=== PATIENT | female | born 1990 | race Caucasian/White ===

== ENCOUNTER 2021-10-30 11:39 | Outpatient (CLI) | payer OTHER, SELFPAY ==
[2021-10-30 15:16] LABS: Absolute Lymphocyte Count 2.29 X10^3/uL (0.83-4.51); Absolute Neutrophil Count 5.6 X10^3/uL (2.0-7.7); Basophil# 0.05 X10^3/uL; Basophil% 0.6 % (0-1); Eosinophil# 0.04 X10^3/uL; Eosinophils% 0.5 % (0-5); Hematocrit 45.3 % (37-47); Hemoglobin 14.7 g/dL (12.0-15.0); Lymphocyte # 2.29 X10^3/ul (0.83-4.51); Lymphocyte % 27.5 % (19-41); Mean Corp Hgb Conc 32.5 g/dL (32-36); Mean Corpuscular Hgb 30.9 pg (27.0-32.0); Mean Corpuscular Volume 95.4 fL (81-99); Mean Platelet Vol. 10.9 fl (6.2-12.0); Monocyte# 0.39 X10^3/uL; Monocyte% 4.7 % (0-10); NRBC Flagged by Analyzer 0 % (0-5); Neutrophil # 5.55 X10^3/uL (2.7-7.7); Neutrophil % 66.5 % (47-70); Platelet Count 262 K/mm3 (150-450); RBC Distribution Width CV 11.9 % (11.6-14.6); RBC Distribution Width SD 41.5 fl (35.1-43.9); Red Blood Count 4.75 M/mm3 (4.2-5.4); White Blood Count 8.3 K/mm3 (4.4-11.0)
[2021-10-30 15:46] LABS: ALB/GLOB Ratio 1.2 RATIO (0.9-2.4); AST(SGOT) 15 U/L (15-37); Alanine Aminotransfer ALT/SGPT 27 U/L (13-56); Albumin, Serum 3.8 g/dL (3.2-5.0); Alkaline Phosphatase 64 U/L (45-117); Anion Gap 6 (5-15); BUN 8 mg/dL (7-18); BUN/Creat Ratio 10.2 RATIO (10-20); Calcium,Total 8.5 mg/dL (8.5-10.1); Chloride 105 mmol/L (98-107); Creatinine, Serum 0.79 mg/dL (0.55-1.02); EST Glomerular Filtration Rate 91 mL/min (>60); Est Glom Filt Rate - Afr Amer 110 mL/min (>60); Globulin 3.3 g/dL (2.2-4.2); Glucose 84 mg/dL (74-106); Potassium 3.8 mmol/L (3.5-5.1); Protein, Total 7.1 g/dL (6.4-8.2); Sodium Level 139 mmol/L (136-145); T4 Free Direct 0.93 ng/dL (0.76-1.46); Thyroid Stim Hormone (TSH) 2.63 uIU/mL (0.358-3.74)
== END 2021-10-30 23:59 | disposition home or self-care (01) ==
LOC: BIMLAB 11:40
PROVIDERS: PCP Internal Medicine; Referring Provider Internal Medicine; Visit Provider Internal Medicine
DX: K21.9 Gastro-esophageal reflux disease without esophagitis (principal); R00.2 Palpitations
CPT/HCPCS: 36415; 80053; 84439; 84443; 85025

== ENCOUNTER → 2021-12-08 | Outpatient (CLI) | payer OTHER, SELFPAY ==
--- NOTE | 2021-12-08 09:20 | EKG12_ITS ---
Test Reason : PALPITATIONS Blood Pressure : / mmHG Vent. Rate : 072 BPM Atrial Rate : 072 BPM P-R Int : 138 ms QRS Dur : 088 ms QT Int : 362 ms P-R-T Axes : 018 057 040 degrees QTc Int : 396 ms Normal sinus rhythm Normal ECG Confirmed by SAMANTHA RICHARDS, JANEL ([id number]), online editor CALEB LAGOS ([id number]) on 12/08/2021 12:23:01 PM Referred By: Kera Agrawal Confirmed By:JANEL SINGH MD
== END | disposition home or self-care (01) ==
LOC: PSN 09:20
PROVIDERS: PCP Internal Medicine; Referring Provider Internal Medicine; Visit Provider Internal Medicine
DX: R00.2 Palpitations (principal)
CPT/HCPCS: 93005

== ENCOUNTER → 2022-07-23 | Outpatient (CLI) | payer OTHER, SELFPAY | END | disposition home or self-care (01) | LOC: LABSPEC 14:43 | PROVIDERS: PCP Internal Medicine; Visit Provider Physician Assistant | DX: R05.9 Cough, unspecified (principal) | CPT/HCPCS: 87635; U0003; U0005 ==

== ENCOUNTER → 2023-03-01 | Outpatient (CLI) | payer OTHER, SELFPAY ==
[2023-03-07 09:10] LABS: HPV APTIMA, High Risk Negative (Negative)
== END | disposition home or self-care (01) ==
LOC: OPBI 16:36
PROVIDERS: Referring Provider Obstetrics & Gynecology; Visit Provider Obstetrics & Gynecology
DX: Z12.4 Encounter for screening for malignant neoplasm of cervix (principal)
CPT/HCPCS: 87624; 88175; G0145

== ENCOUNTER → 2023-03-07 | Outpatient (CLI) | payer OTHER, SELFPAY ==
--- NOTE | 2023-03-07 14:38 | BI_ITS ---
MAMMOGRAPHY - BILATERAL DIAGNOSTIC REASON FOR EXAM: Female, 32 years old. One-week history of a right breast lump. PERTINENT HISTORY: Grandmother with breast cancer. TECHNIQUE: Digital bilateral breast radha (3D mammographic acquisition) in the CC and MLO projections. 2-D mediolateral oblique (MLO) and craniocaudad (CC) views of both breasts were obtained. CAD: Full Field Digital Mammography with Computer Added Detection was performed. COMPARISON: None. Baseline examination. FINDINGS: Breast Composition: The breasts are heterogeneously dense, which may obscure small masses. There are no dominant masses or suspicious calcifications. No other significant abnormalities are identified. BI/DIAG MAMM W/CAD, BILAT IMPRESSION: Negative diagnostic mammogram. With the patient''s history of a palpable lump in the inferior central portion of the right breast, correlation with ultrasound is recommended. ASSESSMENT CATEGORY: BIRADS Category 0: Incomplete. Need additional imaging evaluation. A letter regarding these results will be sent to the patient by the facility within 30 days. Approximately 10% of breast cancers are not detected by mammography. A normal mammogram should not delay biopsy of a clinically suspicious abnormality. Electronically Signed: Bairon Haque MD at 8:55 EDT ,
--- NOTE | 2023-03-07 14:38 | US_ITS ---
STUDY: ULTRASOUND BREAST - RIGHT REASON FOR EXAM: Female, 32 years old. Right breast lump. TECHNIQUE: Axial and longitudinal images of the RIGHT breast were performed with a high resolution ultrasound transducer. # OF IMAGES: 23 COMPARISON: None. FINDINGS: RIGHT Breast: Targeted examination of the right breast in the area of the clinical concern shows dense fibroglandular tissue and normal pectoralis muscle. No dominant cystic or solid masses. Negative imaging should not been further evaluation of any clinically suspicious findings. US/Breast Limited Unilateral IMPRESSION: No abnormality along the right breast ultrasound. See discussion above. ASSESSMENT CATEGORY: BIRADS Category 1: Negative. A letter regarding these results will be sent to the patient by the facility within 30 days. Electronically Signed: Nathen Castaneda MD at 15:47 EDT ,
== END | disposition home or self-care (01) ==
PROVIDERS: PCP Internal Medicine; Referring Provider Obstetrics & Gynecology; Visit Provider Obstetrics & Gynecology
DX: N63.10 Unspecified lump in the right breast, unspecified quadrant (principal); Z80.3 Family history of malignant neoplasm of breast
CPT/HCPCS: 76642; 77062; 77066; G0279

== ENCOUNTER → 2024-03-06 | Outpatient (CLI) | payer OTHER, SELFPAY ==
[2024-03-06 12:04] LABS: Vitamin D,25 Hydroxy 61.7 ng/mL
[2024-03-06 12:10] LABS: ALB/GLOB Ratio 1.1 RATIO (0.9-2.4); AST(SGOT) 18 U/L (15-37); Alanine Aminotransfer ALT/SGPT 22 U/L (13-56); Albumin, Serum 3.9 g/dL (3.2-5.0); Alkaline Phosphatase 70 U/L (45-117); Anion Gap 7 (5-15); BUN 9 mg/dL (7-18); BUN/Creat Ratio 10.8 RATIO (10-20); Calcium,Total 9.2 mg/dL (8.5-10.1); Chloride 104 mmol/L (98-107); Cholesterol 220 mg/dL (200); Creatinine, Serum 0.83 mg/dL (0.55-1.02); EST Glomerular Filtration Rate 84 mL/min (>60); Est Glom Filt Rate - Afr Amer 101 mL/min (>60); Globulin 3.5 g/dL (2.2-4.2); Glucose 84 mg/dL (74-106); High Density Lipoprotein 83 mg/dL; Potassium 3.5 mmol/L (3.5-5.1); Protein, Total 7.4 g/dL (6.4-8.2); Sodium Level 138 mmol/L (136-145); Thyroid Stim Hormone (TSH) 2.26 uIU/mL (0.358-3.74); Triglycerides 92 mg/dL; Very Low Density Lipoprotein 18 mg/dL (5-40)
== END | disposition home or self-care (01) ==
PROVIDERS: PCP Internal Medicine; Referring Provider Obstetrics & Gynecology; Visit Provider Obstetrics & Gynecology
DX: Z13.29 Encounter for screening for other suspected endocrine disorder (principal); R53.83 Other fatigue; Z13.220 Encounter for screening for lipoid disorders; Z13.1 Encounter for screening for diabetes mellitus; Z13.21 Encounter for screening for nutritional disorder
CPT/HCPCS: 36415; 80053; 80061; 82306; 84443

== ENCOUNTER → 2025-02-08 | Outpatient (CLI) | payer OTHER, SELFPAY ==
[2025-02-08 16:28] LABS: AST(SGOT) 21 U/L (<=31); Alanine Aminotransfer ALT/SGPT 22 U/L (<=34); Albumin, Serum 4.6 g/dL (3.5-5.0); Alkaline Phosphatase 72 U/L (35-104); Anion Gap 11 (5-15); BUN 16 mg/dL (4-19); BUN/Creat Ratio 22.6 RATIO (10-20); Calcium,Total 9.5 mg/dL (7.6-11.0); Carbon Dioxide 26.3 mmol/L (21.0-32.0); Chloride 101 mmol/L (98-108); Free T3 2.8 pg/mL (2.18-3.98); Globulin 2.0 g/dL (2.2-4.2); Glucose 81 mg/dL (70-99); Potassium 3.7 mmol/L (3.3-5.1)
== END | disposition home or self-care (01) ==
LOC: LAB 13:55
PROVIDERS: PCP Nurse Practitioner Family; Referring Provider Nurse Practitioner Family; Visit Provider Nurse Practitioner Family
DX: R00.2 Palpitations (principal)
CPT/HCPCS: 36415; 80053; 84439; 84443; 84481; 86376

== ENCOUNTER → 2025-02-17 | Outpatient (CLI) | payer OTHER, SELFPAY ==
--- OUTSIDE RECORDS SUMMARY | 2025-02-17 11:17 | XMS RPT_ITS | CCD ---
Author Organization [facility] Care Team Providers Care Press Tender Star [employer] Name Role Phone Ivanauskas, Saulius Unavailable Unavailable Ivanauskas, Saulius Unavailable Unavailable No Doctor Assigned, Nodr Unavailable Unavail able Unavailable Primary Care Provider Dr. Kera Thomas Attending Provider [phone] Dr. Kera Agrawal Primary Care Provider Dr. Kera Agrawal Referring Provider [phone] Dr. Angela Gomes Attending Provider Kylah HAND II BLOCKER-CMayi Primary Care Provider Kylah HAND II BLOCKER-CMayi Attending Provider Kylah HAND II BLOCKER-CMayi Referring Provider Olecindye, Efewongbe Primary Care Unavailable Angela Gomes Referring UnavailAngela Gamino Attending UnavailMayi Mendoza Attending Unavailable Mayi Montero Referring Unavailable Kylah Mayi Primary Care Unavailable Kylah Mayi Primary Care Unavailable Mayi Montero Referring Unavailable Mayi Montero Attending Unavailable Alvertoe, Efewongbe Referring Unavailable Oleghe, Efewongbe Primary Care Unavailable Angela Gomes Attending Unavailabl e Jenniferhof, Mayi Primary Care Unavailable Kylah Mayi Referring Unavailable Mayi Montero Attending Unavailable Allergies Allergy Classification Reported Allergen(s) Allergy Type Date of Onset Reaction(s) Facility (1 source) No Known Medication Allergies; Translations: [No Known Medication Allergies] Propensity to adverse reactions to drug (disorder) [facility] Repository Medications Current Medications Medication Drug Class(es) Dates Sig (Normalized) Sig (Original) biotin 1 mg oral capsule (1 source) Start: 03-04-2024 take 1 capsule by mouth once daily Biotin 1 mg capsule Active 1 mg PO DAILY March 04, 2024 12:00am cholecalciferol 0.05 mg oral capsule (1 source) Vitamin D Start: 03-04-2024 take 1 capsule by mouth once daily Cholecalciferol (Vitamin D3) 50 mcg (2,000 unit) capsule Active 50 ug PO DAILY March 04, 2024 12:00am collagen peptides (5 sources) Start: 10-30-2021 collagen peptides Active PO October 30, 2021 10:39am Start: 10-30-2021 End: 03-04-2024 collagen peptides Discontinu ed PO 0 October 30, 2021 12:00am March 04, 2024 8:44am Start: 10-30-2021 collagen pepti arie Active PO October 30, 2021 12:00am ethinyl estradiol 0.02 mg / levonorgestrel 0.1 mg oral tablet (9 sources) Progestin, Estrogen, Progestin-containing Intrauterine Device Start: 03-01-2023 End: 02-13-2024 take 1 tablet by mouth once daily Levonorgestrel-Ethinyl Estrad (Aviane) 0.1-20 mg-mcg tablet Active 1 {tbl} PO DAILY February 13, 2024 2:38pm take active pills only Start: 10-30-2021 take 1 tablet by natacha th once daily Levonorgestrel-Ethinyl Estrad (Aviane) 0.1-20 mg-mcg tablet Active 1 TABLET PO DAILY October 30, 2021 10:39am Start: 10-30-2021 End: 03-04-2024 take 1 tablet by mouth once daily Levonorgestrel-Ethinyl Estrad (Aviane) 0.1-20 mg-mcg tablet Discontinued 1 {tbl} PO DAILY October 30, 2021 12:00am March 04, 2024 8:44am Start: 10-30-2021 take 1 tablet by natacha th once daily Levonorgestrel-Ethinyl Estrad (Aviane) 0.1-20 mg-mcg tablet Active 1 TABLET PO DAILY October 30, 2021 12:00am Lactobacillus Combination No .9 (Adult 50 Plus Probiotic) 4 billion cell capsule (5 sources) Start: 10-30-2021 Lactobacillus Combination No.9 (Adult 50 Plus Probiotic) 4 billion cell capsule Active PO October 30, 2021 10:39am Start: 10-30-2021 Lactobacillus Combination No.9 (Adult 50 Plus Probiotic) 4 billion cell capsule Active PO October 30, 2021 12:00am Magnesium (5 sources) Start: 10-30-2021 take 200 mg by mouth once daily Magnesium Active 200 MG PO DAILY October 30, 2021 10:40am Start: 10-30-2021 End: 03-04-2024 take 1 tablet by mouth once daily Magnesium 200 mg tablet Discontinued 200 mg PO DAILY October 30, 2021 12:00am March 04, 2024 8:44am Start: 10-30-2021 take 200 mg by mouth once gypsy y Magnesium Active 200 MG PO DAILY October 30, 2021 12:00am mecobalamin 1 mg sublingual tablet (1 source) Start: 03-04-2024 Mecobalamin (V itamin B12) 1,000 mcg tablet,disintegrating Active 1000 ug SL DAILY March 04, 2024 12:00am place tablet under tongue and allow to dissolve for at least30 secs before swallowing norethindrone 0.35 mg oral tablet (1 source) Start: 03-04-2024 take 1 tablet by mouth once daily Norethindrone (Contraceptive) 0.35 mg tablet Active 0.35 mg PO DAILY 84 0 March 04, 2024 12:00am [place]-3 Fatty Acids 1,000 mg capsule (1 source) Start: 03-04-2024 take 1 capsule by mouth once daily [place]-3 Fatty Acids 1,000 mg capsule Active 1000 mg PO DAILY March 04, 2024 12:00am powdered greens (5 sources) Start: 10-30-2021 powdered green s Active PO October 30, 2021 10:39am Start: 10-30-2021 End: 03-04-2024 powdered greens Discontinued PO 0 October 30, 2021 12:00am March 04, 2024 8:44am Start: 10-30-2021 powdered green s Active PO October 30, 2021 12:00am Completed/Discontinued Medications Medication Drug Class(es) Dates Sig (Normalized) Sig (Original) acetaminophen 325 mg oral capsule (5 sources) Start: 10-30-2021 End: 03-04-2024 take 1 capsule by mouth once as needed Acetaminophen (Tylenol) 325 mg capsule Discontinued 325 mg PO ONCE as needed October 30, 2021 12:00am March 04, 2024 8:44am CBD oil (10 sources) Start: 10-30-2021 End: 03-04-2024 CBD oil Discontinued PO as needed 0 October 30, 2021 11:06am March 04, 2024 8:44am Start: 10-30-2021 CBD oil Active PO October 30, 2021 11:06am Start: 10-30-2021 End: 10-30-2021 CBD oil Discontinued PO Allen h 2021 10:40am October 30, 2021 11:06am Start: 10-30-2021 End: 10-30-2021 CBD oil Discontinued PO 0 Ma rch 2021 12:00am October 30, 2021 11:06am Start: 10-30-2021 End: 10-30-2021 CBD oil Discontinued PO Allen h 2021 12:00am October 30, 2021 11:06am levOCARNitine 500 mg oral tablet (5 sources) Carnitine Analog Start: 10-30-2021 End: 03-01-2023 take 1 tablet by mouth once at mealtime Levocarnitine (L-Carnitine) 500 mg tablet Discontinued 500 mg PO ONCE October 30, 2021 12:00am March 01, 2023 10:47am must administer with a meal/food omeprazole 40 mg delayed release oral capsule (5 sources) Proton Pump Inhibitor Start: 10-30-2021 End: 03-04-2024 take 1 capsule by mouth once daily Omeprazole 40 mg capsule,delayed release(DR/EC) Discontinued 40 mg PO DAILY 90 2 October 30, 2021 12:00am March 04, 2024 8:44am Problems Active Problems Problem Classification Problem Date Documented Date Episodic/Chronic Anxiety disorders (7 sources) Anxiety; Translations: [Anxiety disorder, unspecified] Chronic Cardiac dysrhythmias (1 source) Cardiac arrhythmia; Translations: [Cardiac arrhythmia, unspecified cardiac arrhythmia type] Chronic Cardiac dysrhythmias (9 sources) Palpitations; Translations: [Palpitations] Onset: 02-12-2025 Episodic Disorders of lipid metabolism (1 source) Elevated fasting lipid profile; Translations: [Hyperlipidemia, unspecified] 03-09-2024 Chronic Disorders of teeth and jaw (2 sources) Loss of teeth due to extraction; Translations: [Partial loss of teeth, unspecified cause, unspecified class] Episodic Esophageal disorders (7 sources) Gastroesophageal reflux disease; Translations: [Gastro-esophageal reflux disease without esophagitis] Chronic Heart valve disorders (5 sources) Heart murmur; Translations: [Cardiac murmur, unspecified] 10-30-2021 Episodic Other endocrine disorders (5 sources) Hypoglycemia; Translations: [Hypoglycemia, unspecified] 10-30-2021 Chronic Other upper respiratory disease (5 sources) Seasonal allergy; Translations: [Other seasonal allergic rhinitis] 10-30-2021 Chronic Past or Other Problems Problem Classification Problem Date Documented Da te Episodic/Chronic Malaise and fatigue (2 sources) Fatigue; Translations: [Other fatigue] Onset: 03-04-2024 03-04-2024 Episodic Other screening for suspected conditions (not mental disorders or infectious disease) (4 sources) Encounter for screening for other suspected endocrine disorder; Translations: [Encounter for screening for lipoid disorders] Onset: 03-04-2024 Episodic Results Test Name Value Interpretation Reference Range Facility Thyroid Peroxidase ABon 07-0 THYR PEROX AB < 9 Normal 0-34 [facility] Comment on above: Result Comment: Perf ormed at: - [facility] [address] [id number] [employer]ather: Lj Doshi PhD, Phone: [phone] Performed By: #### L 500.1821, K159.26341, Z506.5751, Z5468.3974, R443.9663 #### [facility] [address] [place], [address] Anion gap in Serum or Plasma Ordered By: Mayi Montero on 02-08-2025 Anion gap [Moles/Vol] 11 mmol/L 5-15 [facility] BUN/creatinine ratioOrdered By: Mayi Montero on 02-08-2025 Urea nitrogen/Creatinine [Mass ratio] 22.6 mg/mg High 10-20 [facility] Bilirubin, totalOrdered By: Mayi Montero on 02-08-2025 Bilirubin [Mass/Vol] 0.51 mg/dL 0.00-1.30 [facility] Carbon dioxide, total [Moles /volume] in Central venous bloodOrdered By: Mayi Montero on 02-08-2025 CO2 [Moles/Vol] 26.3 mmol/L 21.0-32.0 [facility] Chloride assayOrdered By: Panfilo Montero on 02-08-2025 Chloride [Moles/Vol] 101 mmol/L 98-108 [facility] Comprehensive Metabolic Prof ilon 02-08-2025 Albumin [Mass/Vol] 4.6 g/dL Normal 3.5-5.0 [facility] Comment on above: Performed By: #### L 500.4050, L501.45509, L506.0400, L3300.6900, L501.9520 #### [facility] [address] [place], [address] Albumin/Globulin [Mass ratio] 2.4 {ratio} Normal 0.9-2.4 [facility] Comment on above: Performed By: #### L 500.4050, L501.33930, L506.0400, L3300.6900, L501.9520 #### [facility] [address] [place], [address] ALK PHOS 72 U/L Normal 35-104 [facility] Comment on above: Performed By: #### L 500.4050, L501.08203, L506.0400, L3300.6900, L501.9520 #### [facility] [address] [place], [address] ALT [Catalytic activity/Vol] 22 U/L Normal <=34 [facility] Comment on above: Performed By: #### L 500.4050, L501.42289, L506.0400, L3300.6900, L501.9520 #### [facility] [address] [place], [address] AST [Catalytic activity/Vol] 21 U/L Normal <=31 [facility] Comment on above: Performed By: #### L 500.4050, L501.62522, L506.0400, L3300.6900, L501.9520 #### [facility] [address] [place], [address] Bilirubin [Mass/Vol] 0.51 mg/dL Normal 0.00-1.30 [facility] Comment on above: Performed By: #### L 500.4050, L501.92602, L506.0400, L3300.6900, L501.9520 #### [facility] [address] [place], [address] BUN/CRE 22.6 RATIO High 10-20 [facility] Comment on above: Performed By: #### L 500.4050, L501.42638, L506.0400, L3300.6900, L501.9520 #### [facility] [address] [place], [address] Calcium [Mass/Vol] 9.5 mg/dL Normal 7.6-11.0 [facility] Comment on above: Performed By: #### L 500.4050, L501.10115, L506.0400, L3300.6900, L501.9520 #### [facility] [address] [place], [address] Chloride [Moles/Vol] 101 mmol/L Normal 98-108 [facility] Comment on above: Performed By: #### L 500.4050, L501.77726, L506.0400, L3300.6900, L501.9520 #### [facility] [address] [place], [address] CO2 [Moles/Vol] 26.3 mmol/L Normal 21.0-32.0 [facility] Comment on above: Performed By: #### L 500.4050, L501.55794, L506.0400, L3300.6900, L501.9520 #### [facility] [address] [place], [address] Creatinine [Mass/Vol] 0.71 mg/dL Normal 0.70-1.20 [facility] Comment on above: Performed By: #### L 500.4050, L501.89075, L506.0400, L3300.6900, L501.9520 #### [facility] [address] [place], [address] GAP 11 Normal 5-15 [facility] Comment on above: Performed By: #### L 500.4050, L501.84544, L506.0400, L3300.6900, L501.9520 #### [facility] [address] [place], [address] GFR/1.73 sq M.predicted among non-blacks MDRD (S/P/Bld) [Vol rate/Area] 115 mL/min/{1.73_m2} Normal >60 [facility] Comment on above: Result Comment: mL/m in/1.73m2 CKD-EPI Creatinine Equation (2020) Performed By: #### L 500.4050, L501.82364, L506.0400, L3300.6900, L501.9520 #### [facility] [address] [place], [address] Globulin (S) [Mass/Vol] 2.0 g/dL Low 2.2-4.2 [facility] Comment on above: Performed By: #### L 500.4050, L501.04578, L506.0400, L3300.6900, L501.9520 #### [facility] [address] [place], [address] Glucose [Mass/Vol] 81 mg/dL Normal 70-99 [facility] Comment on above: Performed By: #### L 500.4050, L501.41577, L506.0400, L3300.6900, L501.9520 #### [facility] [address] [place], [address] Potassium [Moles/Vol] 3.7 mmol/L Normal 3.3-5.1 [facility] Comment on above: Performed By: #### L 500.4050, L501.37489, L506.0400, L3300.6900, L501.9520 #### [facility] [address] [place], [address] Sodium [Moles/Vol] 137 mmol/L Normal 133-145 [facility] Comment on above: Performed By: #### L 500.4050, L501.74139, L506.0400, L3300.6900, L501.9520 #### [facility] [address] [place], [address] T PROT 6.6 g/dL Normal 5.9-8.4 [facility] Comment on above: Performed By: #### L 500.4050, L501.56720, L506.0400, L3300.6900, L501.9520 #### [facility] [address] [place], [address] Urea nitrogen [Mass/Vol] 16 mg/dL Normal 4-19 [facility] Comment on above: Performed By: #### L 500.4050, L501.20279, L506.0400, L3300.6900, L501.9520 #### [facility] [address] [place], [address] Free T3on 02-08-2025 Free T3 [Mass/Vol] 2.8 pg/mL Normal 2.18-3.98 [facility] Comment on above: Performed By: #### L 500.4050, L501.74295, L506.0400, L3300.6900, L501.9520 #### [facility] [address] [place], [address] Free P3Lbsuyfo By: Mayi rubin on 02-08-2025 Free T3 [Mass/Vol] 2.8 pg/mL 2.18-3.98 [facility] Glomerular filtration rate ( GFR) estimation/1.73 sq m using serum, plasma, or whole bOrdered By: Mayi Montero on 02-08-2025 GFR/1.73 sq M.predicted among non-blacks MDRD (S/P/Bld) [Vol rate/Area] 115 mL/min/{1.73_m2} >60 [facility] Comment on above: mL/min/1.73m2 CKD-EP I Creatinine Equation (2020) Laboratory - Chemistry and C hemistry - challengeOrdered By: Mayi Montero on 02-08-2025 AST [Catalytic activity/Vol] 21 U/L <32 [facility] Potassium measurement (mass/ volume)Ordered By: Mayi Montero on 02-08-2025 Potassium (Unsp spec) [Mass/Vol] 3.7 mmol/L 3.3-5.1 [facility] Serum creatinine measurement (mass/volume)Ordered By: Mayi Montero on 02-08-2025 Creatinine [Mass/Vol] 0.71 mg/dL 0.70-1.20 [facility] Serum globulin measurementOr dered By: Mayi Montero on 02-08-2025 Globulin (S) [Mass/Vol] 2.0 g/dL Low 2.2-4.2 [facility] Serum glucose measurement (m ass/volume)Ordered By: Mayi Montero on 02-08-2025 Glucose [Mass/Vol] 81 mg/dL 70-99 [facility] Serum or plasma alanine zambrano otransferase (ALT) measurementOrdered By: Mayi Montero on 02-08-2025 ALT [Catalytic activity/Vol] 22 U/L <35 [facility] Serum or plasma albumin noah urement (mass/volume)Ordered By: Mayi Montero on 02-08-2025 Albumin [Mass/Vol] 4.6 g/dL 3.5-5.0 [facility] Serum or plasma albumin/glob ulin mass ratioOrdered By: Mayi Montero on 02-08-2025 Albumin/Globulin [Mass ratio] 2.4 {ratio} 0.9-2.4 [facility] Serum or plasma alkaline lisa sphatase measurementOrdered By: Mayi Montero on 02-08-2025 ALP [Catalytic activity/Vol] 72 U/L 35-104 [facility] Serum or plasma calcium noah urement (mass/volume)Ordered By: Mayi Montero on 02-08-2025 Calcium [Mass/Vol] 9.5 mg/dL 7.6-11.0 [facility] Serum or plasma thyroperoxid ase antibody assay (units/volume)Ordered By: Mayi Montero on 02-08-2025 TPO Ab Qn [IU]/mL 0-34 [facility] Comment on above: Performed at: [place] [id number] Director: Lj Doshi PhD, Phone: [phone] Serum or plasma urea nitroge n measurement (mass/volume)Ordered By: Mayi Montero on 02-08-2025 Urea nitrogen [Mass/Vol] 16 mg/dL 4-19 [facility] Sodium levelOrdered By: Amy Montero on 02-08-2025 Sodium [Moles/Vol] 137 mmol/L 133-145 [facility] T4 Free Directon 02-08-2025 T4 FREE DIRECT 1.20 ng/dL Normal 0.76-1.46 [facility] Comment on above: Performed By: #### L 500.4050, L501.91953, L506.0400, L3300.3550, L501.5506 #### [facility] [place], [address] T4 freeOrdered By: Mayi Maddox rudyyobanylevy on 02-08-2025 Free T4 [Mass/Vol] 1.20 ng/dL 0.76-1.46 [facility] TSH DL <= 0.005 mIU/L QnOrde red By: Mayi Jenniferdamien on 02-08-2025 TSH Qn 2.460 uIU/mL 0.300-4.200 [facility] Thyroid Stim Hormone (TSH)on 02-08-2025 TSH 2.460 uIU/mL Normal 0.300-4.200 [facility] Comment on above: Performed By: #### L 500.4050, L501.39400, L506.0400, L3300.6900, L501.9520 #### [facility] [address] [place], [address] Total proteinOrdered By: Alex rogerio Kylah on 02-08-2025 Protein [Mass/Vol] 6.6 g/dL 5.9-8.4 [facility] Comprehensive Metabolic Prof ilon 03-06-2024 Albumin [Mass/Vol] 3.9 g/dL Normal 3.2-5.0 [facility] Comment on above: Performed By: #### L 501.9520, L500.4100, L500.4050, L506.1000 #### [facility] [address] [place], [address] Albumin/Globulin [Mass ratio] 1.1 {ratio} Normal 0.9-2.4 [facility] Comment on above: Performed By: #### L 501.9520, L500.4100, L500.4050, L506.1000 #### [facility] [address] [place], [address] ALK P 70 U/L Normal 45-117 [facility] Comment on above: Performed By: #### L 501.9520, L500.4100, L500.4050, L506.1000 #### [facility] [address] [place], [address] ALT [Catalytic activity/Vol] 22 U/L Normal 13-56 [facility] Comment on above: Performed By: #### L 501.9520, L500.4100, L500.4050, L506.1000 #### [facility] [address] [place], [address] AST [Catalytic activity/Vol] 18 U/L Normal 15-37 [facility] Comment on above: Performed By: #### L 501.9520, L500.4100, L500.4050, L506.1000 #### [facility] [address] [place], [address] Bilirubin [Mass/Vol] 0.80 mg/dL Normal 0.20-1.00 [facility] Comment on above: Result Comment: For patients on eltrombopag therapy, use of Dimension [place] TBIL is not recommended. Performed By: #### L 501.9520, L500.4100, L500.4050, L506.1000 #### [facility] [address] [place], [address] BUN/CRE 10.8 RATIO Normal 10-20 [facility] Comment on above: Performed By: #### L 501.9520, L500.4100, L500.4050, L506.1000 #### [facility] [address] [place], [address] CA,Total 9.2 mg/dL Normal 8.5-10.1 [facility] Comment on above: Performed By: #### L 501.9520, L500.4100, L500.4050, L506.1000 #### [facility] [address] [place], [address] Chloride [Moles/Vol] 104 mmol/L Normal 98-107 [facility] Comment on above: Performed By: #### L 501.9520, L500.4100, L500.4050, L506.1000 #### [facility] [address] [place], [address] CO2 [Moles/Vol] 27.0 mmol/L Normal 21.0-32.0 [facility] Comment on above: Performed By: #### L 501.9520, L500.4100, L500.4050, L506.1000 #### [facility] [address] [place], [address] Creatinine [Mass/Vol] 0.83 mg/dL Normal 0.55-1.02 [facility] Comment on above: Result Comment: The validity of the calculated GFR GFRAA in patients over 70 years has not been determined. Clinical correlation is essential. Performed By: #### L 501.9520, L500.4100, L500.4050, L506.1000 #### [facility] [address] [place], [address] EST GFR - AA 101 mL/min Normal >60 [facility] Comment on above: Result Comment: Afri can Swazi GFR Calc Performed By: #### L 501.9520, L500.4100, L500.4050, L506.1000 #### [facility] [address] [place], [address] GAP 7 Normal 5-15 [facility] Comment on above: Performed By: #### L 501.9520, L500.4100, L500.4050, L506.1000 #### [facility] [address] [place], [address] GFR/1.73 sq M.predicted among non-blacks MDRD (S/P/Bld) [Vol rate/Area] 84 mL/min/{1.73_m2} Normal >60 [facility] Comment on above: Result Comment: Non- GFR Calc Performed By: #### L 501.9520, L500.4100, L500.4050, L506.1000 #### [facility] [address] [place], [address] Globulin (S) [Mass/Vol] 3.5 g/dL Normal 2.2-4.2 [facility] Comment on above: Performed By: #### L 501.9520, L500.4100, L500.4050, L506.1000 #### [facility] [address] [place], [address] Glucose [Mass/Vol] 84 mg/dL Normal 74-106 [facility] Comment on above: Performed By: #### L 501.9520, L500.4100, L500.4050, L506.1000 #### [facility] [address] [place], [address] Potassium [Moles/Vol] 3.5 mmol/L Normal 3.5-5.1 [facility] Comment on above: Performed By: #### L 501.9520, L500.4100, L500.4050, L506.1000 #### [facility] [address] [place], [address] Sodium [Moles/Vol] 138 mmol/L Normal 136-145 [facility] Comment on above: Performed By: #### L 501.9520, L500.4100, L500.4050, L506.1000 #### [facility] [address] [place], [address] T PROT 7.4 g/dL Normal 6.4-8.2 [facility] Comment on above: Performed By: #### L 501.9520, L500.4100, L500.4050, L506.1000 #### [facility] [address] [place], [address] Urea nitrogen [Mass/Vol] 9 mg/dL Normal 7-18 [facility] Comment on above: Performed By: #### L 501.9520, L500.4100, L500.4050, L506.1000 #### [facility] [address] [place], [address] Lipid Profileon 03-06-2024 Cholesterol [Mass/Vol] 220 mg/dL High 200 [facility] Comment on above: Result Comment: <200 mg/dL Desirable 200-240 mg/dL Borderline >240 mg/dL High Risk Performed By: #### L 501.9520, L500.4100, L500.4050, L506.1000 #### [facility] [address] [place], [address] Cholesterol in HDL [Mass/Vol] 83 mg/dL Normal [facility] Comment on above: Result Comment: The drugs N-Acetylcysteine and Metamizole may falsely depress this assay. Reference Range HDL <40 mg/dL Low HDL Cholesterol HDL >or= 60 mg/dL High HDL Cholesterol Performed By: #### L 501.9520, L500.4100, L500.4050, L506.1000 #### [facility] [address] [place], [address] Cholesterol in LDL [Mass/Vol] 119 mg/dL Normal 0-130 [facility] Comment on above: Performed By: #### L 501.9520, L500.4100, L500.4050, L506.1000 #### [facility] [address] [place], [address] Cholesterol in VLDL [Mass/Vol] 18 mg/dL Normal 5-40 [facility] Comment on above: Performed By: #### L 501.9520, L500.4100, L500.4050, L506.1000 #### [facility] [address] [place], [address] Triglyceride [Mass/Vol] 92 mg/dL Normal [facility] Comment on above: Result Comment: The drugs N-Acetylcysteine and Metamizole may falsely depress this assay. Serum Triglycerides Reference Interval Normal <150 mg/dL Borderline high 150 - 199 mg/dL High 200 - 499 mg/dL Very High > or = 500 mg/dL Performed By: #### L 501.9520, L500.4100, L500.4050, L506.1000 #### [facility] [address] [place], [address] Thyroid Stim Hormone (TSH)on 03-06-2024 TSH 2.26 uIU/mL Normal 0.358-3.74 [facility] Comment on above: Performed By: #### L 501.9520, L500.4100, L500.4050, L506.1000 #### [facility] [address] [place], [address] Vitamin D,25 Hydroxyon 03-06 Vitamin D 25-OH 61.7 ng/mL Normal [facility] Comment on above: Result Comment: Mayra min D 25(OH) Status Range Deficiency <20 ng/mL (50nmol/L) Insufficiency 20 - 30 ng/mL (50 - 75 nmol/L) Sufficiency 30 - 100 ng/mL (75 - 250 nmol/L) Toxicity >100 ng/mL (>250 nmol/L) Performed By: #### L 501.9520, L500.4100, L500.4050, L506.1000 #### [facility] [address] 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 [place] [address] OFFICE VISIT Date of Service: 03/04/24 MR#: [id number] Acct: [id number] Name: MICHELE MENDEZ Rep #: [id number] : 1990 Provider: Dr. 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 Is patient in pain?: No Allergies No Known Allergies Allergy (Verified 03/04/24 08:34) Medications ???Medication ???Instructions ???Recorded ???Confirmed ???Type lactobacillus combination no.9 4 PO 10/30/21 03/04/24 History billion cell capsule (Adult 50 Plus Probiotic) Aviane 0.1 mg-20 mcg tablet 1 tab PO DAILY 30 days #30 tabs 02/13/24 03/04/24 Rx (levonorgestrel-ethin yl estrad) biotin 1 mg capsule 1 mg PO DAILY 03/04/24 03/04/24 History cholecalciferol (vitamin D3) 50 50 mcg PO DAILY 03/04/24 03/04/24 History mcg (2,000 unit) capsule mecobalamin (vitamin B12) 1,000 1,000 mcg sublingual DAILY 03/04/24 03/04/24 History mcg disintegrating tablet,sublingual norethindrone (contraceptive) 0.35 0.35 mg PO DAILY #84 tabs 03/04/24 03/04/24 Rx mg tablet omega-3 fatty acids 1,000 mg 1,000 mg PO DAILY 03/04/24 03/04/24 History capsule Post menopausal: No Patient : No : No PFSH Medical History (Updated 03/04/24 @ 08:[address] Angela Gomes, DO) COVID GERD (gastroesophageal reflux disease) Palpitations Hypoglycemia Anxiety Heart murmur Seasonal allergies Family History Grandfather Cancer lung Blood clot in vein Myocardial infarction Mother Diabetes Anxiety Grandmother Anxiety Blood clot in vein Uterine cancer Heart disease Breast cancer Father Arthritis Social History Smoking Status: Never smoker alcohol intake: current substance use type: does not use caffeine: Yes what type of physical activity do you participate in: walking, running and weight training frequency: 5-6 times per week seatbelt use: always do you feel safe at home: Yes additional social history: - Yon History 0 Elective abortions Hx Para Spontaneous abortions Hx # Term Pregnancies Ectopic pregnancies Hx # Pregnancies Multiple births # of living children HPI Encounter for routine gynecological examination Details: MICHELE MENDEZ is a 33 year old who presents for annual exam. Last PAP: 2022- normal History of abnormal PAP: no Last mammogram: 2022, diagnostic and was negative History of abnormal mammogram: had birads 0, ultrasound normal Colon cancer screening: n/a Other preventative health care screenings: needs pcp Female Reproductive History Cycle Length: 21-35 Bleeding Duration: 5 Questions: metorrhagia: No, sexually active: Yes, dyspareunia: No and PCB: No Menopausal Symptoms: No hot flashes, No night sweats, No weight change, No mood changes, No difficulty concentrating, No sleep problems and No change in libido ROS Const Constitutional: Reports as per HPI; Denies fatigue, increased appetite, poor appetite, night sweats, weight gain or weight loss Cardio Card: Denies chest pain Resp Resp: Denies cough or dyspnea GI GI: Reports as per HPI; Denies abdominal pain, bloating, constipation, nausea or vomiting : Reports as per HPI and other; Denies difficulty voiding, dysuria, hematuria, hot flashes, nipple discharge, pelvic pain, prolapse symptoms, urinary frequency, urinary incontinence, urinary urgency, vaginal discharge, vaginal dryness, vaginal odor or vaginal pruritus Skin Skin/Breast: Denies changing lesions, breast mass, breast pain, breast skin changes or nipple discharge Psych Psych: Denies anxiety, change in libido, depression or difficulty concentrating Exam Const General: cooperative, healthy appearing, comfortable, no acute distress, well developed and well groomed [facility] Head: normal to inspection and normocephalic Ears: hearing grossly normal bilaterally and external ears normal Nose: external nose normal Face and sinus: normal facial exam Neck Neck: normal visual inspection, full ROM and no lymphadenopathy Thyroid: thyroid normal Chest Chest palpation inspection: normal inspection of the chest Breast inspection: normal inspection of the breasts and normal inspection of the axillae Breast palpation: normal palpation of the breasts, normal palpation of the axillae and no axillary lymphadenopathy Resp Effort Inspection: normal respiratory effort GI Inspection: renato (more content not included)... Normal [facility] Cervical or vagninal specime n microscopic examination by cytology stain (reported asOrdered By: Angela Owusu on 03-01-2023 Cytology report Cyto stain Doc (Cvx/Vag) Comment . [facility] Comment on above: The Pap smear is a s creening test designed to aid in thedetection of premalignant and malignant conditions of theuterine cervix. It is not a diagnostic procedure andshould not be used as the sole means of detecting cervicalcancer. Both false-positive and false-negative reports dooccur. Detection in cervical specim en of any of human papilloma virus (HPV) 16, 18, 31, 33,Ordered By: Angela Owusu on 03-01-2023 HPV 16+18+31+33+35+39+45+51 +52+56+58+59+66+68 DNA Probe+sig amp Ql (Cvx) Negative Negative [facility] Comment on above: This nucleic acid am plification test detects fourteen high-risk HPV types (16,18,31,33,35,39,45,51,52,56,58,59,66,68)without differentiation. Laboratory - CytologyOrdered By: Angela Owusu on 03-01-2023 Warp Spinner Cyto stain Nom (Cvx/Vag) [ID] Comment . [facility] Comment on above: Yesenia Irizarry Cyto technologist (ASCP) Laboratory - Miscellaneous t estsOrdered By: Angela Owusu on 03-01-2023 Service comment (Unsp spec) [Interp] Comment . [facility] Comment on above: This liquid based Th inPrep(R) pap test was screened withthe use of an image guided system. Service comment (Unsp spec) [Interp] . . [facility] Liquid-based cerv Pap + CT/G C by LETI w reflex to high-risk HPV for ASCUSOrdered By: Angela Owusu on 03-01-2023 Cytology report Cyto stain.thin prep Doc (Cvx/Vag) Comment . [facility] Comment on above: Criteria not met, HP V Genotype not performed.Performed at: - [address] [id number] Director: Mis Joseph MD, Phone: [phone] at: =[facility] [id number] Director: Mis Joseph MD, Phone: [phone] No Panel InformationOrdered By: Angela Owusu on 03-01-2023 Pathology report final diagnosis Narrative Comment . [facility] Comment on above: NEGATIVE FOR INTRAEP ITHELIAL LESION OR MALIGNANCY. Absolute lymphocyte counton 10-30-2021 Lymphocytes Auto (Unsp spec) [#/Vol] 2.29 10*3/uL 0.83-4.51 [facility] Work Phone: Basophil percentageon 2021 Basophils/100 WBC (Bld) 0.6 % 0-1 [facility] Work Phone: [phone] Bilirubin [Mass/Vol] 0.60 mg/dL 0.20-1.00 [facility] Work Phone: Comment on above: For patients on eltr ombopag therapy, use of Dimension [place] TBIL is not recommended. Chloride [Moles/Vol] 105 mmol/L 98-107 [facility] Work Phone: Eosinophils/100 WBC (Bld) 0.5 % 0-5 [facility] Work Phone: Glucose [Mass/Vol] 84 mg/dL 74-106 [facility] Work Phone: Neutrophils (Bld) [#/Vol] 5.6 10*3/uL 2.0-7.7 [facility] Work Phone: Neutrophils/100 WBC (Bld) 66.5 % 47-70 [facility] Work Phone: Potassium [Moles/Vol] 3.8 mmol/L 3.5-5.1 [facility] Work Phone: Protein [Mass/Vol] 7.1 g/dL 6.4-8.2 [facility] Work Phone: Sodium [Moles/Vol] 139 mmol/L 136-145 [facility] Work Phone: WBC (Bld) [#/Vol] 8.3 10*3/uL 4.4-11.0 [facility] Work Phone: Blood erythrocytes count (nu mber/volume)on 10-30-2021 RBC (Bld) [#/Vol] 4.75 10*6/uL 4.2-5.4 [facility] Work Phone: Blood hemoglobin measurement (mass/volume)on 10-30-2021 Hemoglobin (Bld) [Mass/Vol] 14.7 g/dL 12.0-15.0 [facility] Work Phone: Blood lymphocytes/100 leukoc yteson 10-30-2021 Lymphocytes/100 WBC (Bld) 27.5 % 19-41 [facility] Work Phone: Blood monocytes/100 leukocyt eson 10-30-2021 Monocytes/100 WBC (Bld) 4.7 % 0-10 [facility] Work Phone: Blood platelet mean volumeon 10-30-2021 Platelet mean volume (Bld) [Entitic vol] 10.9 fL 6.2-12.0 [facility] Work Phone: Determination of erythrocyte mean corpuscular volume (MCV)on 10-30-2021 MCV (RBC) [Entitic vol] 95.4 fL 81-99 [facility] Work Phone: Hematocrit Auto (Bld) [Volum e fraction]on 10-30-2021 Hematocrit (Bld) [Volume fraction] 45.3 % 37-47 [facility] Work Phone: Laboratory - Chemistry and C hemistry - challengeon 10-30-2021 ALP [Catalytic activity/Vol] 64 U/L 45-117 [facility] Work Phone: ALT [Catalytic activity/Vol] 27 U/L 13-56 [facility] Work Phone: CO2 [Moles/Vol] 28.0 mmol/L 21.0-32.0 [facility] Work Phone: Free T4 [Mass/Vol] 0.93 ng/dL 0.76-1.46 [facility] Work Phone: Globulin (S) [Mass/Vol] 3.3 g/dL 2.2-4.2 [facility] Work Phone: Urea nitrogen/Creatinine [Mass ratio] 10.2 mg/mg 10-20 [facility] Work Phone: Laboratory - Hematology and Cell countson 10-30-2021 Erythrocyte distribution width (RBC) [Entitic vol] 41.5 fL 35.1-43.9 [facility] Work Phone: Erythrocyte distribution width (RBC) [Ratio] 11.9 % 11.6-14.6 [facility] Work Phone: Immature granulocytes/100 WBC (Bld) 0.200 % 0.0-0.9 [facility] Work Phone: Comment on above: IG% - Immature Granu locytes (promyelocytes, myelocytes and metamyelocytes) > 1% indicates that a LEFT SHIFT is Present. MCH (RBC) [Entitic mass] 30.9 pg 27.0-32.0 [facility] Work Phone: Nucleated RBC/100 WBC (Bld) [Ratio] 0 % 0-5 [facility] Work Phone: MCHC Auto (RBC) [Mass/Vol]on 10-30-2021 MCHC (RBC) [Mass/Vol] 32.5 g/dL 32-36 [facility] Work Phone: No Panel Informationon 10-30 Estimated GFR (MDRD) Amer 110 mL/min >60 [facility] Work Phone: Comment on above: GFR Calc Estimated GFR (MDRD) Non-Af Amer 91 mL/min >60 [facility] Work Phone: Comment on above: Non- GFR Calc Thyroid Stimulating Hormone (TSH) 2.63 uIU/mL 0.358-3.74 [facility] Work Phone: Platelets bldon 10-30-2021 Platelets (Bld) [#/Vol] 262 10*3/uL 150-450 [facility] Work Phone: Serum or plasma albumin noah urement (mass/volume)on 10-30-2021 Albumin [Mass/Vol] 3.8 g/dL 3.2-5.0 [facility] Work Phone: Serum or plasma albumin/glob ulin mass ratioon 10-30-2021 Albumin/Globulin [Mass ratio] 1.2 {ratio} 0.9-2.4 [facility] Work Phone: Serum or plasma calcium noah urement (mass/volume)on 10-30-2021 Calcium [Mass/Vol] 8.5 mg/dL 8.5-10.1 [facility] Work Phone: Serum or plasma creatinine m easurement (mass/volume)on 10-30-2021 Creatinine [Mass/Vol] 0.79 mg/dL 0.55-1.02 [facility] Work Phone: Comment on above: The validity of the calculated GFR & GFRAA in patients over 70 years has not been determined. Clinical correlation is essential. Serum or plasma urea nitroge n measurement (mass/volume)on 10-30-2021 Urea nitrogen [Mass/Vol] 8 mg/dL 7-18 [facility] Work Phone: Thin prep Papanicolaou smear with manual screeningon 10-30-2021 Thin prep Papanicolaou smear with manual screening 15 U/L 15-37 [facility] Work Phone: Thin prep Papanicolaou smear with manual screening 6 5-15 [facility] Work Phone: XR Chest 2 Viewson 7 XR Chest 2 Views Exam Date/Time:02/20/2017 05:20 EDTReason for Exam:Shortness of breath (SOB)ReportCHEST 2 VIEWS, 02/20/2017:CLINICAL INDICATION: Upper back strain. Worse since yesterday. Left shoulderand left upper back pain.COMPARISON: None.FINDINGS: Two views show the heart, mediastinum and pulmonary vascularity toappear within normal limits. The lungs and pleural spaces appear clear. Thebony thorax is intact and unremarkable.IMPRESSI ON:Normal chest. FINAL REPORT Dictated: 02/20/2017 5:25 am Tee Jasmine MDigned (Electronic Signature): 02/20/2017 5:25 amSigned by: Jacques Jasmine MD Technologist: [facility] Vital Signs Date Time Vital Sign Value Performing Clinician Faci lity 03-01-2023 10:24-0400 Body height 168.[address] Kera Agrawal Work Phone: [facility] 03-01-2023 10:24-0400 Body mass index (BMI) [Ratio] 20.2 kg/m2 Dr. Kera Agrawal Work Phone: [facility] 03-01-2023 10:24-0400 Body weight 57.[address] Kera Agrawal Work Phone: [facility] 03-01-2023 10:24-0400 Diastolic blood pressure 94 mm[Hg] Dr. Kera Agrawal Work Phone: [facility] 03-01-2023 10:24-0400 Systolic blood pressure 142 mm[Hg] Dr. Kera Agrawal Work Phone: [facility] 10-30-2021 10:58-0400 Body height 168.[address] Kera Agrawal Work Phone: [facility] Work Phone: 10-30-2021 10:58-0400 Body mass index (BMI) [Ratio] 20 kg/m2 Dr. Kera Agrawal Work Phone: [facility] Work Phone: 10-30-2021 10:58-0400 Body temperature 98.6 [degF] Dr. Kera Agrawal Work Phone: [facility] Work Phone: 10-30-2021 10:58-0400 Body weight 57.[address] Kera Agrawal Work Phone: [facility] Work Phone: 10-30-2021 10:58-0400 Diastolic blood pressure 60 mm[Hg] Dr. Kera Agrawal Work Phone: [facility] Work Phone: 10-30-2021 10:58-0400 Heart rate 66 /min Dr. Kera Agrawal Work Phone: [facility] Work Phone: 10-30-2021 10:58-0400 Respiratory rate 16 /min Dr. Kera Agrawal Work Phone: [facility] Work Phone: 10-30-2021 10:58-0400 SaO2% (BldA) [Mass fraction] 96 % Dr. Kera Agrawal Work Phone: [facility] Work Phone: 10-30-2021 10:58-0400 Systolic blood pressure 104 mm[Hg] Dr. Kera Agrawal Work Phone: [facility] Work Phone: Encounters Encounter Date Encounter Type Care Provider Facility Start: 02-19-2025 ambulatory [facility] Facility :[facility] Start: 02-17-2025 ambulatory [facility] Facility :[facility] Start: 02-08-2025 End: 02-08-2025 ambulatory [facility] HAND II BLOCKER-C Work Phone: -Laboratory Start: 02-08-2025 End: 02-08-2025 Patient encounter procedure Mayi Montero HAND II BLOCKER-C -Laboratory Work Phone: Start: 02-08-2025 End: 02-08-2025 ambulatory [facility] Facility:[facility] Start: 03-06-2024 End: 03-06-2024 ambulatory Kera Agrawal Facility:[facility] Start: 03-04-2024 Encounter for gynecological examination (general) (routine) without abnormal findings Angela Gomes [facility] Start: 03-04-2024 End: 03-04-2024 ambulatory Kera Agrawal Facility:[facility] Start: 03-07-2023 End: 03-07-[address] Kera Agrawal Work Phone: [facility] Work Phone: Start: 03-07-2023 End: 03-07-[address] Kera Agrawal Work Phone: [facility]-Outpatient Breast Imaging Work Phone: Start: 03-01-2023 End: 03-01-[address] Kera Agrawal Work Phone: [facility] Work Phone: Start: 03-01-2023 End: 03-01-[address] Kera Agrawal Work Phone: [facility]-Outpatient Breast Imaging Work Phone: Start: 03-01-2023 End: 03-01-[address] Kera Agrawal Work Phone: [facility] Work Phone: Start: 12-08-2021 End: 12-08-[address] Kera Agrawal Work Phone: [facility]-Pulmonary Services/Neurology Start: 10-30-2021 End: 10-30-[address] Kera Agrawal Work Phone: [facility]-Laboratory, [facility] Start: 10-30-2021 End: 10-30-[address] Kera Agrawal Work Phone: [facility] Start: 07-13-2020 End: 07-13-2020 Orders Only Jaime Dhiraj Work Phone: Cardiology Comment on above: Cardiac arrhythmia, unspecified cardiac arrhythmia type (Primary Dx) Start: 02-20-2017 End: 02-20-2017 [facility] Procedures Date Procedure Procedure Detail Performing Clinician Start: 03-07-2023 Bilateral mammography Estrellita Agrawal Work Phone: Start: 03-07-[address] Kera Agrawal Work Phone: Plan of Treatment Date Care Activity Detail Author Start: 03-01-2023 Liquid based cervica l cytology screening [facility] End: 07-13-2021 ECG COMPLETE ECG COMPLETE ECG Routine Cardiac arrhythmia, unspecified cardiac arrhythmia type 1 Occurrences starting 07/13/2020 until 07/13/2021 [facility] Comment on above: 1 Occurrences starti ng 07/13/2020 until 07/13/2021 MG Breast - bilatera l Diagnostic [facility] Path report.final Dx Spec [facility] US Breast limited [facility] Payers Date Payer Category Payer Self-pay [id number] 2023 Unknown [id number] 2019 Private Health Insurance JANETT BENITES OAP [id number] 2019-Present PPO [id number] 2017 [employer] ( [employer] others) [employer] ( and others) PRIME [id number] Private Health Insurance [id number] Unknown [id number] Unknown [facility] [employer] [facility] [id number] Unknown [id number] Unknown [id number] Unknown [id number] 62 Unknown [id number] 62 Unknown [id number] 62 Social History Date Type Detail [facility] Start: 1990 Sex Assigned At Not on file [facility] Exposure to SARS-CoV -2 (event) Unable to assess [facility] Start: 10-30-2021 End: 03-01-2023 Tobacco smoking status [facility] Unknown if ever smoked [facility] Start: 1990 Sex Assigned At Female [facility] Start: 03-01-2023 [facility] (finding) [facility] Clinical Note 03-01-2023 Note Date & Type Note Facility 03-01-2023 Note [facility] Pap Smear Specimen Adequacy March 01, 2023 4:36pm Comment . Satisfactory for evaluation. Endocervical and/or squamous metaplasticcells (endocervical component) are present. Comment on above: Satisfactory for olga luation. Endocervical and/or squamous metaplasticcells (endocervical component) are present. Evaluation note Note Date & Type Note Facility Evaluation note Diagnosis Onset Date Anxiety acute GERD (gastroesophageal reflux disease) acute Palpitations acute [facility] Work Phone: Evaluation note Note Date & Type Note Facility Evaluation note Diagnosis Onset Date Encounter for routine gyneco logical examination noneactive [facility] Work Phone: Evaluation note Note Date & Type Note Facility Evaluation note No assessment information availa ble [facility] Work Phone: Reason for referral (narrative) Note Date & Type Note Facility Reason for referral (narrative) No reason for referral information available [facility] Work Phone: Summary Purpose Family History No Family History Records Found Relationship Condition Age at Onset Recorded Date/T amber grandfather Malignant neoplasm Unknown Venous thrombosis Unknown Myocardial infarction Unknown mother Diabetes mellitus Unknown Anxiety Unknown grandmother Anxiety Unknown Malignant neoplasm of uterus Unknown Cardiac disease Unknown Malignant neoplasm of breast Unknown father Arthritis Unknown Advance Directives No Advanced Directives Records FoundNo Advanced Directives Records Found Assessments Diagnosis Cardiac arrhythmia, unspecified cardiac arrhythmia type- Primary Chief Complaint and Reason for Visit Chief Complaint HAND II BLOCKER, EST. CARE- NPP M EDEL Reason for Visit Anxiety GERD (gastroesophageal reflux disease) Palpitations Chief Complaint HAND II BLOCKER, EST. 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 Reason for Visit Anxiety GERD (gastroesophageal reflux disease) Palpitations Chief Complaint Annual ([employer]) LUMP RIGHT BREAST Reason for Visit Encounter for routin e gynecological examination Chief Complaint Annual ([employer]) LUMP RIGHT BREAST LUMP RIGHT BREAST Reason for Visit Encounter for routin e gynecological examination Additional Source Comments INFORMATION SOURCE (unrecogn ized section and content) DATE CREATED AUTHOR 01/29/2018 [facility] DATE CREATED AUTHOR AUTHOR'S ORGANIZ ATION 02/17/2025 [facility] Source Comments (unrecognize d section and content) In the event this informatio n is protected by the Federal Confidentiality of Alcohol and Drug Abuse Patient Records regulations: The Federal rules restrict any use of the information to criminally investigate or prosecute any alcohol or drug abuse patient.[facility] Goals (unrecognized section and content) Goals may be documented in a n alternate sectionGoals may be documented in an alternate sectionGoals may be documented in an alternate sectionGoals may be documented in an alternate sectionGoals may be documented in an alternate section Care Teams (unrecognized sec tion and content) Team Status: Active Member Role Status Dates Michele Jay MD Family Provider Active Dr. Kera Agrawal MD Primary Care Provider Active Team Status: Inactive Member Role Status Dates Dr. Kera Agrawal MD Primary Care Provider, Refer ring Provider Active Dr. Angela Gomes DO Attending Provider Activ e Team Status: Inactive Member Role Status Dates Dr. Angela Gomes DO Attending Provider, Refe rring Provider Active Team Status: Inactive Member Role Status Dates Dr. Angela Gomse DO Attending Provider, Refe rring Provider Active Dr. Kera Agrawal MD Primary Care Provider Active Team Status: Active Member Role/Relationship Status Dates LEONARD Kuo Primary Care Provider Active Team Status: Inactive Member Role/Relationship Status Dates LEONARD Kuo Primary Care Provider Active Start: February 08, 2025 End: February 08, 2025 LEONARD Kuo Attending Provider Active Start: February 08, 2025 End: February 08, 2025 LEONARD Kuo Referring Provider Active Start: February 08, 2025 End: February 08, 2025 FOR RECORDS PERTAINING TO PATIENTS WHO ARE OR HAVE BEEN ENROLLED IN A CHEMICAL DEPENDENCY/SUBSTANCEABUSE PROGRAM, SOME INFORMATION MAY BE OMITTED. This clinical summary was aggregated from multiple sources. Caution should be exercised in using it in the provision of clinical care. This summary normalizes information from multiple sources, and as a consequence, information in this document may materially change the coding, format and clinical context of patient data. In addition, data may be omitted in some cases. CLINICAL DECISIONS SHOULD BE BASED ON THE PRIMARY CLINICAL RECORDS. [facility]. provides no warranty or guarantee of the accuracy or completeness of information in this document.
--- OUTSIDE RECORDS SUMMARY | 2025-02-17 11:17 | XMS RPT_ITS | CCD ---
Author Organization [facility] Care Team Providers Care Election Watcher Name Role Phone Ivanauskas, Saulius Unavailable Unavailable Ivanauskas, Saulius Unavailable Unavailable No Doctor Assigned, Nodr Unavailable Unavail able Unavailable Primary Care Provider Dr. Kera Thomas Attending Provider [phone] Dr. Kera Agrawal Primary Care Provider Dr. Kera Agrawal Referring Provider [phone] Dr. Angela Gomes Attending Provider Kylah JANITORIAL SUPERVISOR-CMayi Primary Care Provider Kylah JANITORIAL SUPERVISOR-CMayi Attending Provider Kylah JANITORIAL SUPERVISOR-CMayi Referring Provider Olecindye, Efewongbe Primary Care Unavailable [...] Propensity to adverse reactions to drug (disorder) [facility] Repository Medications Current Medications Medication Drug [...] DAILY 84 0 March 04, 2024 12:00am [place]-3 Fatty Acids 1,000 mg capsule (1 source) Start: 03-04-2024 take 1 capsule by mouth once daily [place]-3 Fatty Acids 1,000 mg capsule Active 1000 [...] THYR PEROX AB < 9 Normal 0-34 [facility] Comment on above: Result Comment: Perf ormed at: - [facility] [address] [id number] Corner Former: Lj Doshi PhD, Phone: [phone] Performed By: #### L 500.8682, U222.22298, W506.8735, K8462.0570, K064.9668 #### [facility] [address] [place], [address] Anion gap in Serum or Plasma Ordered By: Mayi Montero on 02-08-2025 Anion gap [Moles/Vol] 11 mmol/L 5-15 [facility] BUN/creatinine ratioOrdered By: Mayi Montero on 02-08-2025 Urea nitrogen/Creatinine [Mass ratio] 22.6 mg/mg High 10-20 [facility] Bilirubin, totalOrdered By: Mayi Montero on 02-08-2025 Bilirubin [Mass/Vol] 0.51 mg/dL 0.00-1.30 [facility] Carbon dioxide, total [Moles /volume] in Central venous bloodOrdered By: Mayi Montero on 02-08-2025 CO2 [Moles/Vol] 26.3 mmol/L 21.0-32.0 [facility] Chloride assayOrdered By: Panfilo Montero on 02-08-2025 Chloride [Moles/Vol] 101 mmol/L 98-108 [facility] Comprehensive Metabolic Prof ilon 02-08-2025 Albumin [Mass/Vol] 4.6 g/dL Normal 3.5-5.0 [facility] Comment on above: Performed By: #### L 500.4050, L501.58268, L506.0400, L3300.6900, L501.9520 #### [facility] [address] [place], [address] Albumin/Globulin [Mass ratio] 2.4 {ratio} Normal 0.9-2.4 [facility] Comment on above: Performed By: #### L 500.4050, L501.53207, L506.0400, L3300.6900, L501.9520 #### [facility] [address] [place], [address] ALK PHOS 72 U/L Normal 35-104 [facility] Comment on above: Performed By: #### L 500.4050, L501.64760, L506.0400, L3300.6900, L501.9520 #### [facility] [address] [place], [address] ALT [Catalytic activity/Vol] 22 U/L Normal <=34 [facility] Comment on above: Performed By: #### L 500.4050, L501.11970, L506.0400, L3300.6900, L501.9520 #### [facility] [address] [place], [address] AST [Catalytic activity/Vol] 21 U/L Normal <=31 [facility] Comment on above: Performed By: #### L 500.4050, L501.67085, L506.0400, L3300.6900, L501.9520 #### [facility] [address] [place], [address] Bilirubin [Mass/Vol] 0.51 mg/dL Normal 0.00-1.30 [facility] Comment on above: Performed By: #### L 500.4050, L501.38795, L506.0400, L3300.6900, L501.9520 #### [facility] [address] [place], [address] BUN/CRE 22.6 RATIO High 10-20 [facility] Comment on above: Performed By: #### L 500.4050, L501.59195, L506.0400, L3300.6900, L501.9520 #### [facility] [address] [place], [address] Calcium [Mass/Vol] 9.5 mg/dL Normal 7.6-11.0 [facility] Comment on above: Performed By: #### L 500.4050, L501.17743, L506.0400, L3300.6900, L501.9520 #### [facility] [address] [place], [address] Chloride [Moles/Vol] 101 mmol/L Normal 98-108 [facility] Comment on above: Performed By: #### L 500.4050, L501.27307, L506.0400, L3300.6900, L501.9520 #### [facility] [address] [place], [address] CO2 [Moles/Vol] 26.3 mmol/L Normal 21.0-32.0 [facility] Comment on above: Performed By: #### L 500.4050, L501.07667, L506.0400, L3300.6900, L501.9520 #### [facility] [address] [place], [address] Creatinine [Mass/Vol] 0.71 mg/dL Normal 0.70-1.20 [facility] Comment on above: Performed By: #### L 500.4050, L501.58271, L506.0400, L3300.6900, L501.9520 #### [facility] [address] [place], [address] GAP 11 Normal 5-15 [facility] Comment on above: Performed By: #### L 500.4050, L501.87048, L506.0400, L3300.6900, L501.9520 #### [facility] [address] [place], [address] GFR/1.73 sq M.predicted among non-blacks MDRD (S/P/Bld) [Vol rate/Area] 115 mL/min/{1.73_m2} Normal >60 [facility] Comment on above: Result Comment: mL/m in/1.73m2 CKD-EPI Creatinine Equation (2020) Performed By: #### L 500.4050, L501.66234, L506.0400, L3300.6900, L501.9520 #### [facility] [address] [place], [address] Globulin (S) [Mass/Vol] 2.0 g/dL Low 2.2-4.2 [facility] Comment on above: Performed By: #### L 500.4050, L501.19744, L506.0400, L3300.6900, L501.9520 #### [facility] [address] [place], [address] Glucose [Mass/Vol] 81 mg/dL Normal 70-99 [facility] Comment on above: Performed By: #### L 500.4050, L501.05774, L506.0400, L3300.6900, L501.9520 #### [facility] [address] [place], [address] Potassium [Moles/Vol] 3.7 mmol/L Normal 3.3-5.1 [facility] Comment on above: Performed By: #### L 500.4050, L501.17948, L506.0400, L3300.6900, L501.9520 #### [facility] [address] [place], [address] Sodium [Moles/Vol] 137 mmol/L Normal 133-145 [facility] Comment on above: Performed By: #### L 500.4050, L501.23624, L506.0400, L3300.6900, L501.9520 #### [facility] [address] [place], [address] T PROT 6.6 g/dL Normal 5.9-8.4 [facility] Comment on above: Performed By: #### L 500.4050, L501.01691, L506.0400, L3300.6900, L501.9520 #### [facility] [address] [place], [address] Urea nitrogen [Mass/Vol] 16 mg/dL Normal 4-19 [facility] Comment on above: Performed By: #### L 500.4050, L501.64719, L506.0400, L3300.6900, L501.9520 #### [facility] [address] [place], [address] Free T3on 02-08-2025 Free T3 [Mass/Vol] 2.8 pg/mL Normal 2.18-3.98 [facility] Comment on above: Performed By: #### L 500.4050, L501.16642, L506.0400, L3300.6900, L501.9520 #### [facility] [address] [place], [address] Free [id number] By: Mayi rubin on 02-08-2025 Free T3 [Mass/Vol] 2.8 pg/mL 2.18-3.98 [facility] Glomerular filtration rate ( GFR) estimation/1.73 sq m using serum, plasma, or whole bOrdered By: Mayi Montero on 02-08-2025 GFR/1.73 sq M.predicted among non-blacks MDRD (S/P/Bld) [Vol rate/Area] 115 mL/min/{1.73_m2} >60 [facility] Comment on above: mL/min/1.73m2 CKD-EP I Creatinine Equation (2020) Laboratory - Chemistry and C hemistry - challengeOrdered By: Mayi Montero on 02-08-2025 AST [Catalytic activity/Vol] 21 U/L <32 [facility] Potassium measurement (mass/ volume)Ordered By: Mayi Montero on 02-08-2025 Potassium (Unsp spec) [Mass/Vol] 3.7 mmol/L 3.3-5.1 [facility] Serum creatinine measurement (mass/volume)Ordered By: Mayi Montero on 02-08-2025 Creatinine [Mass/Vol] 0.71 mg/dL 0.70-1.20 [facility] Serum globulin measurementOr dered By: Mayi Montero on 02-08-2025 Globulin (S) [Mass/Vol] 2.0 g/dL Low 2.2-4.2 [facility] Serum glucose measurement (m ass/volume)Ordered By: Mayi Montero on 02-08-2025 Glucose [Mass/Vol] 81 mg/dL 70-99 [facility] Serum or plasma alanine zambrano otransferase (ALT) measurementOrdered By: Mayi Montero on 02-08-2025 ALT [Catalytic activity/Vol] 22 U/L <35 [facility] Serum or plasma albumin noah urement (mass/volume)Ordered By: Mayi Montero on 02-08-2025 Albumin [Mass/Vol] 4.6 g/dL 3.5-5.0 [facility] Serum or plasma albumin/glob ulin mass ratioOrdered By: Mayi Montero on 02-08-2025 Albumin/Globulin [Mass ratio] 2.4 {ratio} 0.9-2.4 [facility] Serum or plasma alkaline lisa sphatase measurementOrdered By: Mayi Montero on 02-08-2025 ALP [Catalytic activity/Vol] 72 U/L 35-104 [facility] Serum or plasma calcium noah urement (mass/volume)Ordered By: Mayi Montero on 02-08-2025 Calcium [Mass/Vol] 9.5 mg/dL 7.6-11.0 [facility] Serum or plasma thyroperoxid ase antibody assay (units/volume)Ordered By: Mayi Montero on 02-08-2025 TPO Ab Qn [IU]/mL 0-34 [facility] Comment on above: Performed at: [place] [id number] Director: Lj Doshi PhD, Phone: [phone] Serum or plasma urea nitroge n measurement (mass/volume)Ordered By: Mayi Montero on 02-08-2025 Urea nitrogen [Mass/Vol] 16 mg/dL 4-19 [facility] Sodium levelOrdered By: Amy Montero on 02-08-2025 Sodium [Moles/Vol] 137 mmol/L 133-145 [facility] T4 Free Directon 02-08-2025 T4 FREE DIRECT 1.20 ng/dL Normal 0.76-1.46 [facility] Comment on above: Performed By: #### L 500.4050, L501.69005, L506.0400, L3300.5930, L501.6542 #### [facility] [place], [address] T4 freeOrdered By: Mayi Maddox rudyyobanylevy on 02-08-2025 Free T4 [Mass/Vol] 1.20 ng/dL 0.76-1.46 [facility] TSH DL <= 0.005 mIU/L QnOrde red By: Mayi Jenniferdamien on 02-08-2025 TSH Qn 2.460 uIU/mL 0.300-4.200 [facility] Thyroid Stim Hormone (TSH)on 02-08-2025 TSH 2.460 uIU/mL Normal 0.300-4.200 [facility] Comment on above: Performed By: #### L 500.4050, L501.18044, L506.0400, L3300.6900, L501.9520 #### [facility] [address] [place], [address] Total proteinOrdered By: Alex rogerio Kylah on 02-08-2025 Protein [Mass/Vol] 6.6 g/dL 5.9-8.4 [facility] Comprehensive Metabolic Prof ilon 03-06-2024 Albumin [Mass/Vol] 3.9 g/dL Normal 3.2-5.0 [facility] Comment on above: Performed By: #### L 501.9520, L500.4100, L500.4050, L506.1000 #### [facility] [address] [place], [address] Albumin/Globulin [Mass ratio] 1.1 {ratio} Normal 0.9-2.4 [facility] Comment on above: Performed By: #### L 501.9520, L500.4100, L500.4050, L506.1000 #### [facility] [address] [place], [address] ALK P 70 U/L Normal 45-117 [facility] Comment on above: Performed By: #### L 501.9520, L500.4100, L500.4050, L506.1000 #### [facility] [address] [place], [address] ALT [Catalytic activity/Vol] 22 U/L Normal 13-56 [facility] Comment on above: Performed By: #### L 501.9520, L500.4100, L500.4050, L506.1000 #### [facility] [address] [place], [address] AST [Catalytic activity/Vol] 18 U/L Normal 15-37 [facility] Comment on above: Performed By: #### L 501.9520, L500.4100, L500.4050, L506.1000 #### [facility] [address] [place], [address] Bilirubin [Mass/Vol] 0.80 mg/dL Normal 0.20-1.00 [facility] Comment on above: Result Comment: For patients on eltrombopag therapy, use of Dimension [place] TBIL is not recommended. Performed By: #### L 501.9520, L500.4100, L500.4050, L506.1000 #### [facility] [address] [place], [address] BUN/CRE 10.8 RATIO Normal 10-20 [facility] Comment on above: Performed By: #### L 501.9520, L500.4100, L500.4050, L506.1000 #### [facility] [address] [place], [address] CA,Total 9.2 mg/dL Normal 8.5-10.1 [facility] Comment on above: Performed By: #### L 501.9520, L500.4100, L500.4050, L506.1000 #### [facility] [address] [place], [address] Chloride [Moles/Vol] 104 mmol/L Normal 98-107 [facility] Comment on above: Performed By: #### L 501.9520, L500.4100, L500.4050, L506.1000 #### [facility] [address] [place], [address] CO2 [Moles/Vol] 27.0 mmol/L Normal 21.0-32.0 [facility] Comment on above: Performed By: #### L 501.9520, L500.4100, L500.4050, L506.1000 #### [facility] [address] [place], [address] Creatinine [Mass/Vol] 0.83 mg/dL Normal 0.55-1.02 [facility] Comment on above: Result Comment: The validity of the calculated GFR GFRAA in patients over 70 years has not been determined. Clinical correlation is essential. Performed By: #### L 501.9520, L500.4100, L500.4050, L506.1000 #### [facility] [address] [place], [address] EST GFR - AA 101 mL/min Normal >60 [facility] Comment on above: Result Comment: Afri can Congolese GFR Calc Performed By: #### L 501.9520, L500.4100, L500.4050, L506.1000 #### [facility] [address] [place], [address] GAP 7 Normal 5-15 [facility] Comment on above: Performed By: #### L 501.9520, L500.4100, L500.4050, L506.1000 #### [facility] [address] [place], [address] GFR/1.73 sq M.predicted among non-blacks MDRD (S/P/Bld) [Vol rate/Area] 84 mL/min/{1.73_m2} Normal >60 [facility] Comment on above: Result Comment: Non- GFR Calc Performed By: #### L 501.9520, L500.4100, L500.4050, L506.1000 #### [facility] [address] [place], [address] Globulin (S) [Mass/Vol] 3.5 g/dL Normal 2.2-4.2 [facility] Comment on above: Performed By: #### L 501.9520, L500.4100, L500.4050, L506.1000 #### [facility] [address] [place], [address] Glucose [Mass/Vol] 84 mg/dL Normal 74-106 [facility] Comment on above: Performed By: #### L 501.9520, L500.4100, L500.4050, L506.1000 #### [facility] [address] [place], [address] Potassium [Moles/Vol] 3.5 mmol/L Normal 3.5-5.1 [facility] Comment on above: Performed By: #### L 501.9520, L500.4100, L500.4050, L506.1000 #### [facility] [address] [place], [address] Sodium [Moles/Vol] 138 mmol/L Normal 136-145 [facility] Comment on above: Performed By: #### L 501.9520, L500.4100, L500.4050, L506.1000 #### [facility] [address] [place], [address] T PROT 7.4 g/dL Normal 6.4-8.2 [facility] Comment on above: Performed By: #### L 501.9520, L500.4100, L500.4050, L506.1000 #### [facility] [address] [place], [address] Urea nitrogen [Mass/Vol] 9 mg/dL Normal 7-18 [facility] Comment on above: Performed By: #### L 501.9520, L500.4100, L500.4050, L506.1000 #### [facility] [address] [place], [address] Lipid Profileon 03-06-2024 Cholesterol [Mass/Vol] 220 mg/dL High [facility] Comment on above: Result Comment: <200 mg/dL Desirable 200-240 mg/dL Borderline >240 mg/dL High Risk Performed By: #### L 501.9520, L500.4100, L500.4050, L506.1000 #### [facility] [address] [place], [address] Cholesterol in HDL [Mass/Vol] 83 mg/dL Normal [facility] Comment on above: Result Comment: The drugs N-Acetylcysteine and Metamizole may falsely depress this assay. Reference Range HDL <40 mg/dL Low HDL Cholesterol HDL >or= 60 mg/dL High HDL Cholesterol Performed By: #### L 501.9520, L500.4100, L500.4050, L506.1000 #### [facility] [address] [place], [address] Cholesterol in LDL [Mass/Vol] 119 mg/dL Normal 0-130 [facility] Comment on above: Performed By: #### L 501.9520, L500.4100, L500.4050, L506.1000 #### [facility] [address] [place], [address] Cholesterol in VLDL [Mass/Vol] 18 mg/dL Normal 5-40 [facility] Comment on above: Performed By: #### L 501.9520, L500.4100, L500.4050, L506.1000 #### [facility] [address] [place], [address] Triglyceride [Mass/Vol] 92 mg/dL Normal [facility] Comment on above: Result Comment: The drugs N-Acetylcysteine and Metamizole may falsely depress this assay. Serum Triglycerides Reference Interval Normal <150 mg/dL Borderline high 150 - 199 mg/dL High 200 - 499 mg/dL Very High > or = 500 mg/dL Performed By: #### L 501.9520, L500.4100, L500.4050, L506.1000 #### [facility] [address] [place], [address] Thyroid Stim Hormone (TSH)on 03-06-2024 TSH 2.26 uIU/mL Normal 0.358-3.74 [facility] Comment on above: Performed By: #### L 501.9520, L500.4100, L500.4050, L506.1000 #### [facility] [address] [place], [address] Vitamin D,25 Hydroxyon 03-06 Vitamin D 25-OH 61.7 ng/mL Normal [facility] Comment on above: Result Comment: Mayra min D 25(OH) Status Range Deficiency <20 ng/mL (50nmol/L) Insufficiency 20 - 30 ng/mL (50 - 75 nmol/L) Sufficiency 30 - 100 ng/mL (75 - 250 nmol/L) Toxicity >100 ng/mL (>250 nmol/L) Performed By: #### L 501.9520, L500.4100, L500.4050, L506.1000 #### [facility] [address] [place], [address] Coin Machine Collector Office Visit Reporton 03-04-2024 Coin Machine Collector Office Visit Report [facility] [address] [place] [address] OFFICE VISIT Date of Service: 03/04/24 MR#: [id number] Acct: [id number] Name: MICHELE MENDEZ Rep #: [id number] : 1990 Provider: Dr. Angela Holland DO Age/Sex: 33/F Location[place] [facility] [place] Status: Signed Intake Vital Signs 03/01/23 10:24 03/04/24 08:36 Height 5 ft 6.5 in 5 ft 6.5 in Weight: 128 lb 2 oz BMI 20.3 BP 154/111 H Intake Visit Reasons: Annual ([employer]) Nursing Coordinator Required: No Is patient in pain?: No [...] acute distress, well developed and well groomed [facility] Head: normal to inspection and normocephalic Ears: [...] Inspection: renato (more content not included)... Normal [facility] Cervical or vagninal specime n microscopic examination by cytology stain (reported asOrdered By: Angela Owusu on 03-01-2023 Cytology report Cyto stain Doc (Cvx/Vag) Comment . [facility] Comment on above: The Pap smear is [...] DNA Probe+sig amp Ql (Cvx) Negative Negative [facility] Comment on above: This nucleic acid am plification test detects fourteen high-risk HPV types (16,18,31,33,35,39,45,51,52,56,58,59,66,68)without differentiation. Laboratory - CytologyOrdered By: Angela Owusu on 03-01-2023 Meat Stringer Cyto stain Nom (Cvx/Vag) [ID] Comment . [facility] Comment on above: Yesenia Irizarry Cyto technologist (ASCP) Laboratory - Miscellaneous t estsOrdered By: Angela Owusu on 03-01-2023 Service comment (Unsp spec) [Interp] Comment . [facility] Comment on above: This liquid based Th inPrep(R) pap test was screened withthe use of an image guided system. Service comment (Unsp spec) [Interp] . . [facility] Liquid-based cerv Pap + CT/G C by LETI w reflex to high-risk HPV for ASCUSOrdered By: Angela Owusu on 03-01-2023 Cytology report Cyto stain.thin prep Doc (Cvx/Vag) Comment . [facility] Comment on above: Criteria not met, HP V Genotype not performed.Performed at: - [address] [id number] Director: Mis Joseph MD, Phone: [phone] at: =[facility] [address] [id number] Director: Mis Joseph MD, Phone: [phone] No Panel InformationOrdered By: Angela Owusu on 03-01-2023 Pathology report final diagnosis Narrative Comment . [facility] Comment on above: NEGATIVE FOR INTRAEP ITHELIAL LESION OR MALIGNANCY. Absolute lymphocyte counton 10-30-2021 Lymphocytes Auto (Unsp spec) [#/Vol] 2.29 10*3/uL 0.83-4.51 [facility] Work Phone: Basophil percentageon 2021 Basophils/100 WBC (Bld) 0.6 % 0-1 [facility] Work Phone: [phone] Bilirubin [Mass/Vol] 0.60 mg/dL 0.20-1.00 [facility] Work Phone: Comment on above: For patients on eltr ombopag therapy, use of Dimension [place] TBIL is not recommended. Chloride [Moles/Vol] 105 mmol/L 98-107 [facility] Work Phone: Eosinophils/100 WBC (Bld) 0.5 % 0-5 [facility] Work Phone: Glucose [Mass/Vol] 84 mg/dL 74-106 [facility] Work Phone: Neutrophils (Bld) [#/Vol] 5.6 10*3/uL 2.0-7.7 [facility] Work Phone: Neutrophils/100 WBC (Bld) 66.5 % 47-70 [facility] Work Phone: Potassium [Moles/Vol] 3.8 mmol/L 3.5-5.1 [facility] Work Phone: Protein [Mass/Vol] 7.1 g/dL 6.4-8.2 [facility] Work Phone: Sodium [Moles/Vol] 139 mmol/L 136-145 [facility] Work Phone: WBC (Bld) [#/Vol] 8.3 10*3/uL 4.4-11.0 [facility] Work Phone: Blood erythrocytes count (nu mber/volume)on 10-30-2021 RBC (Bld) [#/Vol] 4.75 10*6/uL 4.2-5.4 [facility] Work Phone: Blood hemoglobin measurement (mass/volume)on 10-30-2021 Hemoglobin (Bld) [Mass/Vol] 14.7 g/dL 12.0-15.0 [facility] Work Phone: Blood lymphocytes/100 leukoc yteson 10-30-2021 Lymphocytes/100 WBC (Bld) 27.5 % 19-41 [facility] Work Phone: Blood monocytes/100 leukocyt eson 10-30-2021 Monocytes/100 WBC (Bld) 4.7 % 0-10 [facility] Work Phone: Blood platelet mean volumeon 10-30-2021 Platelet mean volume (Bld) [Entitic vol] 10.9 fL 6.2-12.0 [facility] Work Phone: Determination of erythrocyte mean corpuscular volume (MCV)on 10-30-2021 MCV (RBC) [Entitic vol] 95.4 fL 81-99 [facility] Work Phone: Hematocrit Auto (Bld) [Volum e fraction]on 10-30-2021 Hematocrit (Bld) [Volume fraction] 45.3 % 37-47 [facility] Work Phone: Laboratory - Chemistry and C hemistry - challengeon 10-30-2021 ALP [Catalytic activity/Vol] 64 U/L 45-117 [facility] Work Phone: ALT [Catalytic activity/Vol] 27 U/L 13-56 [facility] Work Phone: CO2 [Moles/Vol] 28.0 mmol/L 21.0-32.0 [facility] Work Phone: Free T4 [Mass/Vol] 0.93 ng/dL 0.76-1.46 [facility] Work Phone: Globulin (S) [Mass/Vol] 3.3 g/dL 2.2-4.2 [facility] Work Phone: Urea nitrogen/Creatinine [Mass ratio] 10.2 mg/mg 10-20 [facility] Work Phone: Laboratory - Hematology and Cell countson 10-30-2021 Erythrocyte distribution width (RBC) [Entitic vol] 41.5 fL 35.1-43.9 [facility] Work Phone: Erythrocyte distribution width (RBC) [Ratio] 11.9 % 11.6-14.6 [facility] Work Phone: Immature granulocytes/100 WBC (Bld) 0.200 % 0.0-0.9 [facility] Work Phone: Comment on above: IG% - Immature Granu locytes (promyelocytes, myelocytes and metamyelocytes) > 1% indicates that a LEFT SHIFT is Present. MCH (RBC) [Entitic mass] 30.9 pg 27.0-32.0 [facility] Work Phone: Nucleated RBC/100 WBC (Bld) [Ratio] 0 % 0-5 [facility] Work Phone: MCHC Auto (RBC) [Mass/Vol]on 10-30-2021 MCHC (RBC) [Mass/Vol] 32.5 g/dL 32-36 [facility] Work Phone: No Panel Informationon 10-30 Estimated GFR (MDRD) Amer 110 mL/min >60 [facility] Work Phone: Comment on above: GFR Calc Estimated GFR (MDRD) Non-Af Amer 91 mL/min >60 [facility] Work Phone: Comment on above: Non- GFR Calc Thyroid Stimulating Hormone (TSH) 2.63 uIU/mL 0.358-3.74 [facility] Work Phone: Platelets bldon 10-30-2021 Platelets (Bld) [#/Vol] 262 10*3/uL 150-450 [facility] Work Phone: Serum or plasma albumin noah urement (mass/volume)on 10-30-2021 Albumin [Mass/Vol] 3.8 g/dL 3.2-5.0 [facility] Work Phone: Serum or plasma albumin/glob ulin mass ratioon 10-30-2021 Albumin/Globulin [Mass ratio] 1.2 {ratio} 0.9-2.4 [facility] Work Phone: Serum or plasma calcium noah urement (mass/volume)on 10-30-2021 Calcium [Mass/Vol] 8.5 mg/dL 8.5-10.1 [facility] Work Phone: Serum or plasma creatinine m easurement (mass/volume)on 10-30-2021 Creatinine [Mass/Vol] 0.79 mg/dL 0.55-1.02 [facility] Work Phone: Comment on above: The validity of the calculated GFR & GFRAA in patients over 70 years has not been determined. Clinical correlation is essential. Serum or plasma urea nitroge n measurement (mass/volume)on 10-30-2021 Urea nitrogen [Mass/Vol] 8 mg/dL 7-18 [facility] Work Phone: Thin prep Papanicolaou smear with manual screeningon 10-30-2021 Thin prep Papanicolaou smear with manual screening 15 U/L 15-37 [facility] Work Phone: Thin prep Papanicolaou smear with manual screening 6 5-15 [facility] Work Phone: XR Chest 2 Viewson 7 [...] 5:25 amSigned by: Jacques Jasmine MD Technologist: [facility] Vital Signs Date Time Vital Sign Value Performing Clinician Faci lity 03-01-2023 10:24-0400 Body height 168.[address] Kera Agrawal Work Phone: [facility] 03-01-2023 10:24-0400 Body mass index (BMI) [Ratio] 20.2 kg/m2 Dr. Kera Agrawal Work Phone: [facility] 03-01-2023 10:24-0400 Body weight 57.[address] Kera Agrawal Work Phone: [facility] 03-01-2023 10:24-0400 Diastolic blood pressure 94 mm[Hg] Dr. Kera Agrawal Work Phone: [facility] 03-01-2023 10:24-0400 Systolic blood pressure 142 mm[Hg] Dr. Kera Agrawal Work Phone: [facility] 10-30-2021 10:58-0400 Body height 168.[address] Kera Agrawal Work Phone: [facility] Work Phone: 10-30-2021 10:58-0400 Body mass index (BMI) [Ratio] 20 kg/m2 Dr. Kera Agrawal Work Phone: [facility] Work Phone: 10-30-2021 10:58-0400 Body temperature 98.6 [degF] Dr. Kera Agrawal Work Phone: [facility] Work Phone: 10-30-2021 10:58-0400 Body weight 57.[address] Kera Agrawal Work Phone: [facility] Work Phone: 10-30-2021 10:58-0400 Diastolic blood pressure 60 mm[Hg] Dr. Kera Agrawal Work Phone: [facility] Work Phone: 10-30-2021 10:58-0400 Heart rate 66 /min Dr. Kera Agrawal Work Phone: [facility] Work Phone: 10-30-2021 10:58-0400 Respiratory rate 16 /min Dr. Kera Agrawal Work Phone: [facility] Work Phone: 10-30-2021 10:58-0400 SaO2% (BldA) [Mass fraction] 96 % Dr. Kera Agrawal Work Phone: [facility] Work Phone: 10-30-2021 10:58-0400 Systolic blood pressure 104 mm[Hg] Dr. Kera Agrawal Work Phone: [facility] Work Phone: Encounters Encounter Date Encounter Type Care Provider Facility Start: 02-19-2025 ambulatory [facility] Facility [facility] Start: 02-17-2025 ambulatory [facility] Facility [facility] Start: 02-08-2025 End: 02-08-2025 ambulatory [facility] J[employer]ITORIAL SUPERVISOR-C Work Phone: -Laboratory Start: 02-08-2025 End: 02-08-2025 Patient encounter procedure Mayi Montero JANITORIAL SUPERVISOR-C -Laboratory Work Phone: Start: 02-08-2025 End: 02-08-2025 ambulatory [facility] Start: 03-06-2024 End: 03-06-2024 ambulatory Kera Agrawal Facility:[facility] Start: 03-04-2024 Encounter for gynecological examination (general) (routine) without abnormal findings Angela [facility] Start: 03-04-2024 End: 03-04-2024 ambulatory Kera Agrawal Facility:[facility] Start: 03-07-2023 End: 03-07-[address] Kera Agrawal Work Phone: [facility] Work Phone: Start: 03-07-2023 End: 03-07-[address] Kera Agrawal Work Phone: [facility] Work Phone: Start: 03-01-2023 End: 03-01-[address] Kera Agrawal Work Phone: [facility] Work Phone: Start: 03-01-2023 End: 03-01-[address] Kera Agrawal Work Phone: [facility] Work Phone: Start: 03-01-2023 End: 03-01-[address] Kera Agrawal Work Phone: [facility] Work Phone: Start: 12-08-2021 End: 12-08-[address] Kera Agrawal Work Phone: [facility]Neurology Start: 10-30-2021 End: 10-30-[address] Kera Agrawal Work Phone: [facility], [facility] Start: 10-30-2021 End: 10-30-[address] Kera Agrawal Work Phone: [facility] Internal Medicine Start: 07-13-2020 End: 07-13-2020 Orders Only Jaime Dhiraj Work Phone: Cardiology Comment on above: Cardiac arrhythmia, unspecified cardiac arrhythmia type (Primary Dx) Start: 02-20-2017 End: 02-20-2017 [facility] Procedures Date Procedure Procedure Detail Performing Clinician Start: 03-07-2023 Bilateral mammography Estrellita Agrawal Work Phone: Start: 03-07-[address] Kera Agrawal Work Phone: Plan of Treatment Date Care Activity Detail Author Start: 03-01-2023 Liquid based cervica l cytology screening [facility] End: 07-13-2021 ECG COMPLETE ECG COMPLETE ECG Routine Cardiac arrhythmia, unspecified cardiac arrhythmia type 1 Occurrences starting 07/13/2020 until 07/13/[address] [facility] Comment on above: 1 Occurrences starti ng 07/13/2020 until 07/13/2021 MG Breast - bilatera l Diagnostic [facility] Path report.final Dx Spec [facility] US Breast limited [facility] Payers Date Payer Category Payer Self-pay [id number] 2023 Unknown [id number] 2019 Private Health Insurance [employer]T [employer] OAP [id number] 2019-Present PPO [id number] 2017 [employer] others[place] [employer] and others[place] PRIME [id number] Private Health Insurance [id number] Unknown [id number] Unknown [facility] PACKAGE PLAN [id number] Unknown [id number] 62 Unknown [id number] 62 Unknown [id number] 62 Unknown [id number] Social History Date Type Detail [facility] Start: 1990 Sex Assigned At Not on file C [facility] Exposure to SARS-CoV -2 (event) Unable to assess [facility] Start: 10-30-2021 End: 03-01-2023 Tobacco smoking status [facility] Unknown if ever smoked [facility] Start: 1990 Sex Assigned At Female [facility] Start: 03-01-2023 [facility] (finding) [facility] Clinical Note 03-01-2023 Note Date & Type Note Facility 03-01-2023 Note [facility] Pap Smear Specimen Adequacy March 01, 2023 4:36pm Comment . Satisfactory for evaluation. Endocervical and/or squamous metaplasticcells (endocervical component) are present. Comment on above: Satisfactory for olga luation. Endocervical and/or squamous metaplasticcells (endocervical component) are present. Evaluation note Note Date & Type Note Facility Evaluation note Diagnosis Onset Date Anxiety acute GERD (gastroesophageal reflux disease) acute Palpitations acute [facility] Work Phone: Evaluation note Note Date & Type Note Facility Evaluation note Diagnosis Onset Date Encounter for routine gyneco logical examination noneactive [facility] Work Phone: Evaluation note Note Date & Type Note Facility Evaluation note No assessment information availa ble [facility] Work Phone: Reason for referral (narrative) Note Date & Type Note Facility Reason for referral (narrative) No reason for referral information available [facility] Work Phone: Summary Purpose Family History No [...] Complaint and Reason for Visit 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) LUMP RIGHT BREAST Reason for Visit Encounter for routin e gynecological examination Chief Complaint Annual (BAG TURNER) LUMP RIGHT BREAST LUMP RIGHT BREAST Reason for Visit Encounter for routin e gynecological examination Additional Source Comments INFORMATION SOURCE (unrecogn ized section and content) DATE CREATED AUTHOR 01/29/2018 [facility] DATE CREATED AUTHOR AUTHOR'S ORGANIZ ATION 02/17/2025 [facility] Source Comments (unrecognize d section and content) In the event this informatio n is protected by the Federal Confidentiality of Alcohol and Drug Abuse Patient Records regulations: The Federal rules restrict any use of the information to criminally investigate or prosecute any alcohol or drug abuse patient.[facility] Goals (unrecognized section and content) Goals may [...] BE BASED ON THE PRIMARY CLINICAL RECORDS. [facility] [employer] [facility]. provides no warranty or guarantee of the accuracy or completeness of information in this document.
== END | disposition home or self-care (01) ==
LOC: PSN 09:00
PROVIDERS: PCP Nurse Practitioner Family; Referring Provider Nurse Practitioner Family; Visit Provider Nurse Practitioner Family
DX: R00.2 Palpitations (principal)
CPT/HCPCS: 93225; 93226

== ENCOUNTER → 2025-02-19 | Outpatient (CLI) | payer OTHER, SELFPAY ==
--- OUTSIDE RECORDS SUMMARY | 2025-02-19 07:02 | XMS RPT_ITS | CCD ---
Author Organization [facility] Care Team Providers Care Powerhouse Engineer Name Role Phone Ivanauskas, Saulius Unavailable Unavailable Ivanauskas, Saulius Unavailable Unavailable No Doctor Assigned, Nodr Unavailable Unavail able Unavailable Primary Care Provider Dr. Kera Thomas Attending Provider [phone] Dr. Kera Agrawal Primary Care Provider Dr. Kera Agrawal Referring Provider [phone] Dr. Angela Gomes Attending Provider Kylah JAVA PROGRAMMER-CMayi Primary Care Provider Kylah JAVA PROGRAMMER-CMayi Attending Provider Kylah JAVA PROGRAMMER-CMayi Referring Provider Olecindye, Efewongbe Primary Care Unavailable [...] Propensity to adverse reactions to drug (disorder) [facility] Repository Medications Current Medications Medication [...] DAILY 84 0 March 04, 2024 12:00am Greenleaf-3 Fatty Acids 1,000 mg capsule (1 source) Start: 03-04-2024 take 1 capsule by mouth once daily Greenleaf-3 Fatty Acids 1,000 mg capsule Active 1000 [...] THYR PEROX AB < 9 Normal 0-34 [facility] Comment on above: Result Comment: Perf ormed at: - [facility] [address] [id number] Head Transfer Clerk: Lj Doshi PhD, Phone: [phone] Performed By: #### L 500.0027, I272.55072, F206.1219, B3815.3748, Q372.2776 #### [facility] [address] [place], [address] Anion gap in Serum or Plasma Ordered By: Mayi Montero on 02-08-2025 Anion gap [Moles/Vol] 11 mmol/L 5-15 [facility] [place] [facility] BUN/creatinine ratioOrdered By: Mayi Montero on 02-08-2025 Urea nitrogen/Creatinine [Mass ratio] 22.6 mg/mg High 10-20 [facility] Bilirubin, totalOrdered By: Mayi Montero on 02-08-2025 Bilirubin [Mass/Vol] 0.51 mg/dL 0.00-1.30 [facility] Carbon dioxide, total [Moles /volume] in Central venous bloodOrdered By: Mayi Montero on 02-08-2025 CO2 [Moles/Vol] 26.3 mmol/L 21.0-32.0 [facility] Chloride assayOrdered By: Panfilo Montero on 02-08-2025 Chloride [Moles/Vol] 101 mmol/L 98-108 [facility] Comprehensive Metabolic Prof ilon 02-08-2025 Albumin [Mass/Vol] 4.6 g/dL Normal 3.5-5.0 [facility] Comment on above: Performed By: #### L 500.4050, L501.38141, L506.0400, L3300.6900, L501.9520 #### [facility] [address] [place], [address] Albumin/Globulin [Mass ratio] 2.4 {ratio} Normal 0.9-2.4 [facility] Comment on above: Performed By: #### L 500.4050, L501.58957, L506.0400, L3300.6900, L501.9520 #### [facility] [address] [place], [address] ALK PHOS 72 U/L Normal 35-104 [facility] Comment on above: Performed By: #### L 500.4050, L501.97870, L506.0400, L3300.6900, L501.9520 #### [facility] [address] [place], [address] ALT [Catalytic activity/Vol] 22 U/L Normal <=34 [facility] Comment on above: Performed By: #### L 500.4050, L501.62086, L506.0400, L3300.6900, L501.9520 #### [facility] [address] [place], [address] AST [Catalytic activity/Vol] 21 U/L Normal <=31 [facility] Comment on above: Performed By: #### L 500.4050, L501.87031, L506.0400, L3300.6900, L501.9520 #### [facility] [address] [place], [address] Bilirubin [Mass/Vol] 0.51 mg/dL Normal 0.00-1.30 [facility] Comment on above: Performed By: #### L 500.4050, L501.23988, L506.0400, L3300.6900, L501.9520 #### [facility] [address] [place], [address] BUN/CRE 22.6 RATIO High 10-20 [facility] Comment on above: Performed By: #### L 500.4050, L501.71935, L506.0400, L3300.6900, L501.9520 #### [facility] [address] [place], [address] Calcium [Mass/Vol] 9.5 mg/dL Normal 7.6-11.0 [facility] Comment on above: Performed By: #### L 500.4050, L501.83737, L506.0400, L3300.6900, L501.9520 #### [facility] [address] [place], [address] Chloride [Moles/Vol] 101 mmol/L Normal 98-108 [facility] Comment on above: Performed By: #### L 500.4050, L501.01503, L506.0400, L3300.6900, L501.9520 #### [facility] [address] [place], [address] CO2 [Moles/Vol] 26.3 mmol/L Normal 21.0-32.0 [facility] Comment on above: Performed By: #### L 500.4050, L501.28460, L506.0400, L3300.6900, L501.9520 #### [facility] [address] [place], [address] Creatinine [Mass/Vol] 0.71 mg/dL Normal 0.70-1.20 [facility] [place] [facility] Comment on above: Performed By: #### L 500.4050, L501.93977, L506.0400, L3300.6900, L501.9520 #### [facility] [address] [place], [address] GAP 11 Normal 5-15 [facility] Comment on above: Performed By: #### L 500.4050, L501.79683, L506.0400, L3300.6900, L501.9520 #### [facility] [address] [place], [address] GFR/1.73 sq M.predicted among non-blacks MDRD (S/P/Bld) [Vol rate/Area] 115 mL/min/{1.73_m2} Normal >60 [facility] Comment on above: Result Comment: mL/m in/1.73m2 CKD-EPI Creatinine Equation (2020) Performed By: #### L 500.4050, L501.81469, L506.0400, L3300.6900, L501.9520 #### [facility] [address] [place], [address] Globulin (S) [Mass/Vol] 2.0 g/dL Low 2.2-4.2 [facility] Comment on above: Performed By: #### L 500.4050, L501.60969, L506.0400, L3300.6900, L501.9520 #### [facility] [address] [place], [address] Glucose [Mass/Vol] 81 mg/dL Normal 70-99 [facility] Comment on above: Performed By: #### L 500.4050, L501.45204, L506.0400, L3300.6900, L501.9520 #### [facility] [address] [place], [address] Potassium [Moles/Vol] 3.7 mmol/L Normal 3.3-5.1 [facility] [place] [facility] Comment on above: Performed By: #### L 500.4050, L501.82088, L506.0400, L3300.6900, L501.9520 #### [facility] [address] [place], [address] Sodium [Moles/Vol] 137 mmol/L Normal 133-145 [facility] Comment on above: Performed By: #### L 500.4050, L501.12409, L506.0400, L3300.6900, L501.9520 #### [facility] [address] [place], [address] T PROT 6.6 g/dL Normal 5.9-8.4 [facility] Comment on above: Performed By: #### L 500.4050, L501.70850, L506.0400, L3300.6900, L501.9520 #### [facility] [address] [place], [address] Urea nitrogen [Mass/Vol] 16 mg/dL Normal 4-19 [facility] Comment on above: Performed By: #### L 500.4050, L501.18727, L506.0400, L3300.6900, L501.9520 #### [facility] [address] [place], [address] Free T3on 02-08-2025 Free T3 [Mass/Vol] 2.8 pg/mL Normal 2.18-3.98 [facility] Comment on above: Performed By: #### L 500.4050, L501.32847, L506.0400, L3300.6900, L501.9520 #### [facility] [address] [place], [address] Free [id number] By: Mayi rubin on 02-08-2025 Free T3 [Mass/Vol] 2.8 pg/mL 2.18-3.98 [facility] Glomerular filtration rate ( GFR) estimation/1.73 sq m using serum, plasma, or whole bOrdered By: Mayi Montero on 02-08-2025 GFR/1.73 sq M.predicted among non-blacks MDRD (S/P/Bld) [Vol rate/Area] 115 mL/min/{1.73_m2} >60 [facility] Comment on above: mL/min/1.73m2 CKD-EP I Creatinine Equation (2020) Laboratory - Chemistry and C hemistry - challengeOrdered By: Mayi Montero on 02-08-2025 AST [Catalytic activity/Vol] 21 U/L <32 [facility] Potassium measurement (mass/ volume)Ordered By: Mayi Montero on 02-08-2025 Potassium (Unsp spec) [Mass/Vol] 3.7 mmol/L 3.3-5.1 [facility] Serum creatinine measurement (mass/volume)Ordered By: Mayi Montero on 02-08-2025 Creatinine [Mass/Vol] 0.71 mg/dL 0.70-1.20 [facility] [place] [facility] Serum globulin measurementOr dered By: Mayi Montero on 02-08-2025 Globulin (S) [Mass/Vol] 2.0 g/dL Low 2.2-4.2 [facility] Serum glucose measurement (m ass/volume)Ordered By: Mayi Montero on 02-08-2025 Glucose [Mass/Vol] 81 mg/dL 70-99 [facility] Serum or plasma alanine zambrano otransferase (ALT) measurementOrdered By: Mayi Montero on 02-08-2025 ALT [Catalytic activity/Vol] 22 U/L <35 [facility] Serum or plasma albumin noah urement (mass/volume)Ordered By: Mayi Montero on 02-08-2025 Albumin [Mass/Vol] 4.6 g/dL 3.5-5.0 [facility] Serum or plasma albumin/glob ulin mass ratioOrdered By: Mayi Montero on 02-08-2025 Albumin/Globulin [Mass ratio] 2.4 {ratio} 0.9-2.4 [facility] Serum or plasma alkaline lisa sphatase measurementOrdered By: Mayi Montero on 02-08-2025 ALP [Catalytic activity/Vol] 72 U/L 35-104 [facility] Serum or plasma calcium noah urement (mass/volume)Ordered By: Mayi Montero on 02-08-2025 Calcium [Mass/Vol] 9.5 mg/dL 7.6-11.0 [facility] Serum or plasma thyroperoxid ase antibody assay (units/volume)Ordered By: Mayi Montero on 02-08-2025 TPO Ab Qn [IU]/mL 0-34 [facility] Comment on above: Performed at: [place] [id number] Director: Lj Doshi PhD, Phone: [phone] Serum or plasma urea nitroge n measurement (mass/volume)Ordered By: Mayi Montero on 02-08-2025 Urea nitrogen [Mass/Vol] 16 mg/dL 4-19 [facility] Sodium levelOrdered By: Amy Montero on 02-08-2025 Sodium [Moles/Vol] 137 mmol/L 133-145 [facility] T4 Free Directon 02-08-2025 T4 FREE DIRECT 1.20 ng/dL Normal 0.76-1.46 [facility] Comment on above: Performed By: #### L 500.4050, L501.45833, L506.0400, L3300.1250, L501.9078 #### [facility] [place], [address] T4 freeOrdered By: Mayi Maddox rudyyobanylevy on 02-08-2025 Free T4 [Mass/Vol] 1.20 ng/dL 0.76-1.46 [facility] TSH DL <= 0.005 mIU/L QnOrde red By: Mayi Jenniferdamien on 02-08-2025 TSH Qn 2.460 uIU/mL 0.300-4.200 [facility] Thyroid Stim Hormone (TSH)on 02-08-2025 TSH 2.460 uIU/mL Normal 0.300-4.200 [facility] Comment on above: Performed By: #### L 500.4050, L501.22631, L506.0400, L3300.6900, L501.9520 #### [facility] [address] [place], [address] Total proteinOrdered By: Alex rogerio Kylah on 02-08-2025 Protein [Mass/Vol] 6.6 g/dL 5.9-8.4 [facility] Comprehensive Metabolic Prof ilon 03-06-2024 Albumin [Mass/Vol] 3.9 g/dL Normal 3.2-5.0 [facility] Comment on above: Performed By: #### L 501.9520, L500.4100, L500.4050, L506.1000 #### [facility] [address] [place], [address] Albumin/Globulin [Mass ratio] 1.1 {ratio} Normal 0.9-2.4 [facility] Comment on above: Performed By: #### L 501.9520, L500.4100, L500.4050, L506.1000 #### [facility] [address] [place], [address] ALK P 70 U/L Normal 45-117 [facility] Comment on above: Performed By: #### L 501.9520, L500.4100, L500.4050, L506.1000 #### [facility] [address] [place], [address] ALT [Catalytic activity/Vol] 22 U/L Normal 13-56 [facility] Comment on above: Performed By: #### L 501.9520, L500.4100, L500.4050, L506.1000 #### [facility] [address] [place], [address] AST [Catalytic activity/Vol] 18 U/L Normal 15-37 [facility] Comment on above: Performed By: #### L 501.9520, L500.4100, L500.4050, L506.1000 #### [facility] [address] [place], [address] Bilirubin [Mass/Vol] 0.80 mg/dL Normal 0.20-1.00 [facility] Comment on above: Result Comment: For patients on eltrombopag therapy, use of Dimension [place] TBIL is not recommended. Performed By: #### L 501.9520, L500.4100, L500.4050, L506.1000 #### [facility] [address] [place], [address] BUN/CRE 10.8 RATIO Normal 10-20 [facility] Comment on above: Performed By: #### L 501.9520, L500.4100, L500.4050, L506.1000 #### [facility] [address] [place], [address] CA,Total 9.2 mg/dL Normal 8.5-10.1 [facility] Comment on above: Performed By: #### L 501.9520, L500.4100, L500.4050, L506.1000 #### [facility] [address] [place], [address] Chloride [Moles/Vol] 104 mmol/L Normal 98-107 [facility] Comment on above: Performed By: #### L 501.9520, L500.4100, L500.4050, L506.1000 #### [facility] [address] [place], [address] CO2 [Moles/Vol] 27.0 mmol/L Normal 21.0-32.0 [facility] Comment on above: Performed By: #### L 501.9520, L500.4100, L500.4050, L506.1000 #### [facility] [address] [place], [address] Creatinine [Mass/Vol] 0.83 mg/dL Normal 0.55-1.02 [facility] [place] [facility] Comment on above: Result Comment: The validity of the calculated GFR GFRAA in patients over 70 years has not been determined. Clinical correlation is essential. Performed By: #### L 501.9520, L500.4100, L500.4050, L506.1000 #### [facility] [address] [place], [address] EST GFR - AA 101 mL/min Normal >60 [facility] Comment on above: Result Comment: Afri can Salvadorean GFR Calc Performed By: #### L 501.9520, L500.4100, L500.4050, L506.1000 #### [facility] [address] [place], [address] GAP 7 Normal 5-15 [facility] Comment on above: Performed By: #### L 501.9520, L500.4100, L500.4050, L506.1000 #### [facility] [address] [place], [address] GFR/1.73 sq M.predicted among non-blacks MDRD (S/P/Bld) [Vol rate/Area] 84 mL/min/{1.73_m2} Normal >60 [facility] Comment on above: Result Comment: Non- GFR Calc Performed By: #### L 501.9520, L500.4100, L500.4050, L506.1000 #### [facility] [address] [place], [address] Globulin (S) [Mass/Vol] 3.5 g/dL Normal 2.2-4.2 [facility] Comment on above: Performed By: #### L 501.9520, L500.4100, L500.4050, L506.1000 #### [facility] [address] [place], [address] Glucose [Mass/Vol] 84 mg/dL Normal 74-106 [facility] Comment on above: Performed By: #### L 501.9520, L500.4100, L500.4050, L506.1000 #### [facility] [address] [place], [address] Potassium [Moles/Vol] 3.5 mmol/L Normal 3.5-5.1 [facility] [place] [facility] Comment on above: Performed By: #### L 501.9520, L500.4100, L500.4050, L506.1000 #### [facility] [address] [place], [address] Sodium [Moles/Vol] 138 mmol/L Normal 136-145 [facility] Comment on above: Performed By: #### L 501.9520, L500.4100, L500.4050, L506.1000 #### [facility] [address] [place], [address] T PROT 7.4 g/dL Normal 6.4-8.2 [facility] Comment on above: Performed By: #### L 501.9520, L500.4100, L500.4050, L506.1000 #### [facility] [address] [place], [address] Urea nitrogen [Mass/Vol] 9 mg/dL Normal 7-18 [facility] Comment on above: Performed By: #### L 501.9520, L500.4100, L500.4050, L506.1000 #### [facility] [address] [place], [address] Lipid Profileon 03-06-2024 Cholesterol [Mass/Vol] 220 mg/dL High 200 [facility] Comment on above: Result Comment: <200 mg/dL Desirable 200-240 mg/dL Borderline >240 mg/dL High Risk Performed By: #### L 501.9520, L500.4100, L500.4050, L506.1000 #### [facility] [address] [place], [address] Cholesterol in HDL [Mass/Vol] 83 mg/dL Normal [facility] Comment on above: Result Comment: The drugs N-Acetylcysteine and Metamizole may falsely depress this assay. Reference Range HDL <40 mg/dL Low HDL Cholesterol HDL >or= 60 mg/dL High HDL Cholesterol Performed By: #### L 501.9520, L500.4100, L500.4050, L506.1000 #### [facility] [address] [place], [address] Cholesterol in LDL [Mass/Vol] 119 mg/dL Normal 0-130 [facility] Comment on above: Performed By: #### L 501.9520, L500.4100, L500.4050, L506.1000 #### [facility] [address] [place], [address] Cholesterol in VLDL [Mass/Vol] 18 mg/dL Normal 5-40 [facility] Comment on above: Performed By: #### L 501.9520, L500.4100, L500.4050, L506.1000 #### [facility] [address] [place], [address] Triglyceride [Mass/Vol] 92 mg/dL Normal [facility] Comment on above: Result Comment: The drugs N-Acetylcysteine and Metamizole may falsely depress this assay. Serum Triglycerides Reference Interval Normal <150 mg/dL Borderline high 150 - 199 mg/dL High 200 - 499 mg/dL Very High > or = 500 mg/dL Performed By: #### L 501.9520, L500.4100, L500.4050, L506.1000 #### [facility] [address] [place], [address] Thyroid Stim Hormone (TSH)on 03-06-2024 TSH 2.26 uIU/mL Normal 0.358-3.74 [facility] Comment on above: Performed By: #### L 501.9520, L500.4100, L500.4050, L506.1000 #### [facility] [address] [place], [address] Vitamin D,25 Hydroxyon 03-06 Vitamin D 25-OH 61.7 ng/mL Normal [facility] Comment on above: Result Comment: Mayra min D 25(OH) Status Range Deficiency <20 ng/mL (50nmol/L) Insufficiency 20 - 30 ng/mL (50 - 75 nmol/L) Sufficiency 30 - 100 ng/mL (75 - 250 nmol/L) Toxicity >100 ng/mL (>250 nmol/L) Performed By: #### L 501.9520, L500.4100, L500.4050, L506.1000 #### [facility] [address] [place], [address] [place] [facility] Office Visit Reporton 03-04-2024 [facility] [place] [facility] Office Visit Report [facility] [address] [place] [address] OFFICE VISIT Date of Service: 03/04/24 MR#: [id number] Acct: [id number] Name: MICHELE MENDEZ Rep #: [id number] : 1990 Provider: Dr. 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 Head: normal to inspection and normocephalic [...] Inspection: renato (more content not included)... Normal [facility] Cervical or vagninal specime n microscopic examination by cytology stain (reported asOrdered By: Angela Owusu on 03-01-2023 Cytology report Cyto stain Doc (Cvx/Vag) Comment . [facility] Comment on above: The Pap smear [...] DNA Probe+sig amp Ql (Cvx) Negative Negative [facility] Comment on above: This nucleic acid am plification test detects fourteen high-risk HPV types (16,18,31,33,35,39,45,51,52,56,58,59,66,68)without differentiation. Laboratory - CytologyOrdered By: Angela Owusu on 03-01-2023 Foot Roentgenologist Cyto stain Nom (Cvx/Vag) [ID] Comment . [facility] Comment on above: Yesenia Irizarry Cyto technologist (ASCP) Laboratory - Miscellaneous t estsOrdered By: Angela Owusu on 03-01-2023 Service comment (Unsp spec) [Interp] Comment . [facility] Comment on above: This liquid based Th inPrep(R) pap test was screened withthe use of an image guided system. Service comment (Unsp spec) [Interp] . . [facility] Liquid-based cerv Pap + CT/G C by LETI w reflex to high-risk HPV for ASCUSOrdered By: Angela Owusu on 03-01-2023 Cytology report Cyto stain.thin prep Doc (Cvx/Vag) Comment . [facility] Comment on above: Criteria not met, HP V Genotype not performed.Performed at: - [address] [id number] Director: Mis Joseph MD, Phone: [phone] at: =[facility] [id number] Director: Mis Joseph MD, Phone: [phone] No Panel InformationOrdered By: Angela Owusu on 03-01-2023 Pathology report final diagnosis Narrative Comment . [facility] Comment on above: NEGATIVE FOR INTRAEP ITHELIAL LESION OR MALIGNANCY. Absolute lymphocyte counton 10-30-2021 Lymphocytes Auto (Unsp spec) [#/Vol] 2.29 10*3/uL 0.83-4.51 [facility] Work Phone: Basophil percentageon 2021 Basophils/100 WBC (Bld) 0.6 % 0-1 [facility] Work Phone: [phone] Bilirubin [Mass/Vol] 0.60 mg/dL 0.20-1.00 [facility] Work Phone: Comment on above: For patients on eltr ombopag therapy, use of Dimension [place] TBIL is not recommended. Chloride [Moles/Vol] 105 mmol/L 98-107 [facility] Work Phone: Eosinophils/100 WBC (Bld) 0.5 % 0-5 [facility] Work Phone: Glucose [Mass/Vol] 84 mg/dL 74-106 [facility] Work Phone: Neutrophils (Bld) [#/Vol] 5.6 10*3/uL 2.0-7.7 [facility] Work Phone: Neutrophils/100 WBC (Bld) 66.5 % 47-70 [facility] Work Phone: Potassium [Moles/Vol] 3.8 mmol/L 3.5-5.1 [facility] [place] [facility] Work Phone: Protein [Mass/Vol] 7.1 g/dL 6.4-8.2 [facility] Work Phone: Sodium [Moles/Vol] 139 mmol/L 136-145 [facility] Work Phone: WBC (Bld) [#/Vol] 8.3 10*3/uL 4.4-11.0 [facility] Work Phone: Blood erythrocytes count (nu mber/volume)on 10-30-2021 RBC (Bld) [#/Vol] 4.75 10*6/uL 4.2-5.4 [facility] Work Phone: Blood hemoglobin measurement (mass/volume)on 10-30-2021 Hemoglobin (Bld) [Mass/Vol] 14.7 g/dL 12.0-15.0 [facility] Work Phone: Blood lymphocytes/100 leukoc yteson 10-30-2021 Lymphocytes/100 WBC (Bld) 27.5 % 19-41 [facility] Work Phone: Blood monocytes/100 leukocyt eson 10-30-2021 Monocytes/100 WBC (Bld) 4.7 % 0-10 [facility] Work Phone: Blood platelet mean volumeon 10-30-2021 Platelet mean volume (Bld) [Entitic vol] 10.9 fL 6.2-12.0 [facility] Work Phone: Determination of erythrocyte mean corpuscular volume (MCV)on 10-30-2021 MCV (RBC) [Entitic vol] 95.4 fL 81-99 [facility] Work Phone: Hematocrit Auto (Bld) [Volum e fraction]on 10-30-2021 Hematocrit (Bld) [Volume fraction] 45.3 % 37-47 [facility] Work Phone: Laboratory - Chemistry and C hemistry - challengeon 10-30-2021 ALP [Catalytic activity/Vol] 64 U/L 45-117 [facility] Work Phone: ALT [Catalytic activity/Vol] 27 U/L 13-56 [facility] Work Phone: CO2 [Moles/Vol] 28.0 mmol/L 21.0-32.0 [facility] Work Phone: Free T4 [Mass/Vol] 0.93 ng/dL 0.76-1.46 [facility] Work [facility]: Globulin (S) [Mass/Vol] 3.3 g/dL 2.2-4.2 [facility] Work Phone: Urea nitrogen/Creatinine [Mass ratio] 10.2 mg/mg 10-20 [facility] Work Phone: Laboratory - Hematology and Cell countson 10-30-2021 Erythrocyte distribution width (RBC) [Entitic vol] 41.5 fL 35.1-43.9 [facility] Work Phone: Erythrocyte distribution width (RBC) [Ratio] 11.9 % 11.6-14.6 [facility] Work Phone: Immature granulocytes/100 WBC (Bld) 0.200 % 0.0-0.9 [facility] Work Phone: Comment on above: IG% - Immature Granu locytes (promyelocytes, myelocytes and metamyelocytes) > 1% indicates that a LEFT SHIFT is Present. MCH (RBC) [Entitic mass] 30.9 pg 27.0-32.0 [facility] Work Phone: Nucleated RBC/100 WBC (Bld) [Ratio] 0 % 0-5 [facility] Work Phone: MCHC Auto (RBC) [Mass/Vol]on 10-30-2021 MCHC (RBC) [Mass/Vol] 32.5 g/dL 32-36 [facility] [place] [facility] Work Phone: No Panel Informationon 10-30 Estimated GFR (MDRD) Amer 110 mL/min >60 [facility] Work Phone: Comment on above: GFR Calc Estimated GFR (MDRD) Non-Af Amer 91 mL/min >60 [facility] Work Phone: Comment on above: Non- GFR Calc Thyroid Stimulating Hormone (TSH) 2.63 uIU/mL 0.358-3.74 [facility] Work Phone: Platelets bldon 10-30-2021 Platelets (Bld) [#/Vol] 262 10*3/uL 150-450 [facility] Work Phone: Serum or plasma albumin noah urement (mass/volume)on 10-30-2021 Albumin [Mass/Vol] 3.8 g/dL 3.2-5.0 [facility] Work Phone: Serum or plasma albumin/glob ulin mass ratioon 10-30-2021 Albumin/Globulin [Mass ratio] 1.2 {ratio} 0.9-2.4 [facility] Work Phone: Serum or plasma calcium noah urement (mass/volume)on 10-30-2021 Calcium [Mass/Vol] 8.5 mg/dL 8.5-10.1 [facility] Work Phone: Serum or plasma creatinine m easurement (mass/volume)on 10-30-2021 Creatinine [Mass/Vol] 0.79 mg/dL 0.55-1.02 [facility] [place] [facility] Work Phone: Comment on above: The validity of the calculated GFR & GFRAA in patients over 70 years has not been determined. Clinical correlation is essential. Serum or plasma urea nitroge n measurement (mass/volume)on 10-30-2021 Urea nitrogen [Mass/Vol] 8 mg/dL 7-18 [facility] Work Phone: Thin prep Papanicolaou smear with manual screeningon 10-30-2021 Thin prep Papanicolaou smear with manual screening 15 U/L 15-37 [facility] Work Phone: Thin prep Papanicolaou smear with manual screening 6 5-15 [facility] Work Phone: XR Chest 2 Viewson [...] 5:25 amSigned by: Jacques Jasmine MD Technologist: [facility] Vital Signs Date Time Vital Sign Value Performing Clinician Faci lity 03-01-2023 10:24-0400 Body height 168.[address] Kera Agrawal Work Phone: [facility] 03-01-2023 10:24-0400 Body mass index (BMI) [Ratio] 20.2 kg/m2 Dr. Kera Agrawal Work Phone: [facility] 03-01-2023 10:24-0400 Body weight 57.[address] Kera Agrawal Work Phone: [facility] 03-01-2023 10:24-0400 Diastolic blood pressure 94 mm[Hg] Dr. Kera Agrawal Work Phone: [facility] 03-01-2023 10:24-0400 Systolic blood pressure 142 mm[Hg] Dr. Kera Agrawal Work Phone: [facility] 10-30-2021 10:58-0400 Body height 168.[address] Kera Agrawal Work Phone: [facility] Work Phone: 10-30-2021 10:58-0400 Body mass index (BMI) [Ratio] 20 kg/m2 Dr. Kera Agrawal Work Phone: [facility] Work Phone: 10-30-2021 10:58-0400 Body temperature 98.6 [degF] Dr. Kera Agrawal Work Phone: [facility] Work Phone: 10-30-2021 10:58-0400 Body weight 57.[address] Kera Agrawal Work Phone: [facility] Work Phone: 10-30-2021 10:58-0400 Diastolic blood pressure 60 mm[Hg] Dr. Kera Agrawal Work Phone: [facility] Work Phone: 10-30-2021 10:58-0400 Heart rate 66 /min Dr. Kera Agrawal Work Phone: [facility] Work Phone: 10-30-2021 10:58-0400 Respiratory rate 16 /min Dr. Kera Agrawal Work Phone: [facility] Work Phone: 10-30-2021 10:58-0400 SaO2% (BldA) [Mass fraction] 96 % Dr. Kera Agrawal Work Phone: [facility] Work Phone: 10-30-2021 10:58-0400 Systolic blood pressure 104 mm[Hg] Dr. Kera Agrawal Work Phone: [facility] Work Phone: Encounters Encounter Date Encounter Type Care Provider Facility Start: 02-19-2025 ambulatory [facility] Facility :[facility] Start: 02-17-2025 ambulatory [facility] Facility :[facility] Start: 02-08-2025 End: 02-08-2025 ambulatory [facility] JAVA PROGRAMMER-C Work Phone: -Laboratory Start: 02-08-2025 End: 02-08-2025 Patient encounter procedure Mayi Montero JAVA PROGRAMMER-C -Laboratory Work Phone: Start: 02-08-2025 End: 02-08-2025 ambulatory [facility] Facility:[facility] Start: 03-06-2024 End: 03-06-2024 ambulatory Kera Agrawal Facility:[facility] Start: 03-04-2024 Encounter for gynecological examination (general) (routine) without abnormal findings Angela Gomes [facility] Start: 03-04-2024 End: 03-04-2024 ambulatory Kera Agrawal Facility:[facility] Start: 03-07-2023 End: 03-07-[address] Kera Agrawal Work Phone: [facility] Work Phone: Start: 03-07-2023 End: 03-07-[address] Kera Agrawal Work Phone: [facility] Work Phone: Start: 03-01-2023 End: 03-01-[address] Kera Agrawal Work Phone: [facility] Work Phone: Start: 03-01-2023 End: 03-01-[address] Kera Agrawal Work Phone: [facility] Work Phone: Start: 03-01-2023 End: 03-01-[address] Kera Agrawal Work Phone: [facility] Work Phone: Start: 12-08-2021 End: 12-08-[address] Kera Agrawal Work Phone: [facility] Services/Neurology Start: 10-30-2021 End: 10-30-[address] Kera Agrawal Work Phone: [facility]-Laboratory, [facility] Start: 10-30-2021 End: 10-30-[address] Kera Agrawal Work Phone: [facility] Start: 07-13-2020 End: 07-13-2020 Orders Only Jaime Dhiraj Work Phone: Cardiology Comment on above: Cardiac arrhythmia, unspecified cardiac arrhythmia type (Primary Dx) Start: 02-20-2017 End: 02-20-2017 [facility] Procedures Date Procedure Procedure Detail Performing Clinician Start: 03-07-2023 Bilateral mammography Estrellita Agrawal Work Phone: Start: 03-07-[address] Kera Agrawal Work Phone: Plan of Treatment Date Care Activity Detail Author Start: 03-01-2023 Liquid based cervica l cytology screening [facility] End: 07-13-2021 ECG COMPLETE ECG COMPLETE ECG Routine Cardiac arrhythmia, unspecified cardiac arrhythmia type 1 Occurrences starting 07/13/2020 until 07/13/2021 [facility] Comment on above: 1 Occurrences starti ng 07/13/2020 until 07/13/2021 MG Breast - bilatera l Diagnostic [facility] Path report.final Dx Spec [facility] US Breast limited [facility] Payers Date Payer Category Payer Self-pay [id number] 2023 Unknown [id number] 2019 Private Health Insurance [employer]ANETT [employer] OAP [id number] 2019-Present PPO [id number] 2017 [employer] others[place] [employer] and others[place] PRIME [id number] Private Health Insurance [id number] Unknown [id number] Unknown [facility] PACKAGE PLAN [id number] Unknown [id number] Unknown [id number] Unknown [id number] Unknown [id number] 62 Unknown [id number] Social History Date Type Detail Facility [facility] Start: 1990 Sex Assigned At Not on file [facility] Exposure to SARS-CoV -2 (event) Unable to assess [facility] Start: 10-30-2021 End: 03-01-2023 Tobacco smoking status [facility]IS Unknown if ever smoked [facility] Start: 1990 Sex Assigned At Female [facility] Start: 03-01-2023 [facility] (finding) [facility] Clinical Note 03-01-2023 Note Date & Type Note Facility 03-01-2023 Note [facility] Pap Smear Specimen Adequacy March 01, 2023 4:36pm Comment . Satisfactory for evaluation. Endocervical and/or squamous metaplasticcells (endocervical component) are present. Comment on above: Satisfactory for olga luation. Endocervical and/or squamous metaplasticcells (endocervical component) are present. Evaluation note Note Date & Type Note Facility Evaluation note Diagnosis Onset Date Anxiety acute GERD (gastroesophageal reflux disease) acute Palpitations acute [facility] Work Phone: Evaluation note Note Date & Type Note Facility Evaluation note Diagnosis Onset Date Encounter for routine gyneco logical examination noneactive [facility] Work Phone: Evaluation note Note Date & Type Note Facility Evaluation note No assessment information availa ble [facility] Work Phone: Reason for referral (narrative) Note Date & Type Note Facility Reason for referral (narrative) No reason for referral information available [facility] Work Phone: Summary Purpose Family History [...] Complaint and Reason for Visit 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 LUMP RIGHT BREAST Reason for Visit Encounter for routin e gynecological examination Additional Source Comments INFORMATION SOURCE (unrecogn ized section and content) DATE CREATED AUTHOR 01/29/2018 [facility] DATE CREATED AUTHOR AUTHOR'S ORGANIZ ATION 02/17/2025 [facility] Source Comments (unrecognize d section and content) In the event this informatio n is protected by the Federal Confidentiality of Alcohol and Drug Abuse Patient Records regulations: The Federal rules restrict any use of the information to criminally investigate or prosecute any alcohol or drug abuse patient.[facility] Goals (unrecognized section and content) Goals [...] BE BASED ON THE PRIMARY CLINICAL RECORDS. [facility] [employer] [facility]. provides no warranty or guarantee of the accuracy or completeness of information in this document.
--- NOTE | 2025-02-19 07:57 | ECHOD_ITS ---
Reason For Study Reason For Study: PALPITATIONS Procedure This was a 2D Doppler, Color Flow transthoracic echocardiogram. Exam performed in department. Left Ventricle Normal LV size. Left ventricular systolic function is normal. The left ventricular ejection fraction is 60 %. No regional wall motion abnormalities noted. Right Ventricle Normal RV size. Normal systolic function. Atria Normal left atrium. Normal right atrium. Mitral Valve Normal mitral valve. Tricuspid Valve Normal tricuspid valve. Mild tricuspid valve insufficiency. Aortic Valve Trisinus/trileaflet aortic valve. Pulmonic Valve Normal pulmonic valve. Great Vessels Normal aortic root. The pulmonary artery is normal size. Inferior vena cava collapse with respiration. Pericardium/Pleural No pericardial effusion. MMode/2D Measurements & Calculations LVIDd: 4.1 cm IVSd: 0.62 cm LAV(MOD- bp): 37.8 ml LVIDs: 2.7 cm LVPWd: 0.64 cm LAV(MOD- bp) Indexed: 22.7 ml/m2 RVDd: 2.9 cm FS: 33.7 % LAV(MOD- sp2): 35.2 ml LAV(MOD- sp4): 35.1 ml SV(MOD- sp4): 41.3 ml LVAd ap4: 25.7 cm2 LVAd ap2: 28.4 cm2 LVLd ap4: 8.4 cm LVLd ap2: 8.6 cm SI(MOD- sp4): 24.8 ml/m2 EDV(MOD-sp4): 65.4 ml EDV(MOD-sp2): 76.8 ml EDV(sp4-el): 66.3 ml EDV(sp2-el): 79.3 ml LVAs ap4: 14.6 cm2 LVAs ap2: 15.8 cm2 LVLs ap4: 7.3 cm LVLs ap2: 7.1 cm ESV(MOD-sp4): 24.1 ml ESV(MOD-sp2): 29.0 ml ESV(sp4-el): 24.8 ml ESV(sp2-el): 30.1 ml EF(MOD-sp4): 63.1 % EF(MOD-sp2): 62.3 % EF(sp4-el): 62.6 % SV(MOD-sp2): 47.9 ml SV(sp4-el): 41.5 ml LA A4 area: 13.4 cm2 SI(MOD-sp2): 28.7 ml/m2 LA dimension(2D): 2.5 cm TAPSE: 1.8 cm RA A4 area: 8.7 cm2 Time Measurements MV dec time: 0.19 sec Doppler Measurements & Calculations MV E max vinicio: 113.3 cm/sec Lat Peak E' Vinicio: 19.5 cm/sec Med Peak E' Vinicio: 11.0 cm/sec MV A max vinicio: 48.9 cm/sec E/E' lat: 5.8 E/E' med: 10.3 MV E/A: 2.3 MV V2 max: 121.7 cm/sec MV P1/2t max vinicio: 123.4 cm/sec Ao V2 max: 127.4 cm/sec MV max P.9 mmHg MV P1/2t: 41.8 msec Ao max P.5 mmHg MV V2 mean: 62.7 cm/sec MV dec slope: 863.8 cm/sec2 Ao V2 mean: 92.0 cm/sec MV mean P.8 mmHg Ao mean P.8 mmHg MV V2 VTI: 27.4 cm MVA(P1/2t): 5.3 cm2 Ao V2 VTI: 27.5 cm AV (velocity ratio): 0.81 LV V1 max: 109.9 cm/sec PA V2 max: 137.5 cm/sec TR max vinicio: 222.8 cm/sec LV V1 max P.8 mmHg PA V2 mean: 95.6 cm/sec TR max P.9 mmHg LV V1 mean P.7 mmHg LV V1 mean: 78.8 cm/sec LV V1 VTI: 22.4 cm ECHO/Echo Complete Interpretation Summary Normal LV size. Left ventricular systolic function is normal. The left ventricular ejection fraction is 60 %. Structurally normal valves. Ordering Physician: Mayi Montero Referring Physician: Mayi Motnero Performed By: Madelyn Duarte, PIERRE, RVT
== END | disposition home or self-care (01) ==
LOC: CVS 06:57
PROVIDERS: PCP Nurse Practitioner Family; Referring Provider Nurse Practitioner Family; Visit Provider Nurse Practitioner Family
DX: R00.2 Palpitations (principal)
CPT/HCPCS: 93306